=== PATIENT | female | born 1975 ===

== ENCOUNTER 2017-02-25 13:46 | Inpatient (IN) | payer MEDICAID ==
[2017-02-25 13:53] VITALS: BMI 39.9
[2017-02-25 15:00] LABS: EOS # 0.1 K/uL (0.0-0.7); LYMPH # 2.9 K/uL (1.0-4.3); MEAN CORPUSCULAR HEMOGLOBIN 17.5 pg (27.0-31.0); MONO # 0.7 K/uL (0.0-0.8)
[2017-02-25 15:05] LABS: CHLORIDE 107 mmol/L (98-107); INR 3.1; SODIUM 139 mmol/L (132-148)
[2017-02-25 15:06] LABS: POTASSIUM 3.7 mmol/L (3.6-5.2)
[2017-02-25 15:07] LABS: CARBON DIOXIDE 21 mmol/L (22-30); CHOLESTEROL 163 mg/dL (0-199)
[2017-02-25 15:08] LABS: ALB/GLOB RATIO 1.2 (1.0-2.1); ALKALINE PHOSPHATASE 89 U/L (38-126); ALT/SGPT 25 U/L (9-52); AST/SGOT 33 U/L (14-36); BILIRUBIN,TOTAL 0.6 mg/dL (0.2-1.3); BLOOD UREA NITROGEN 11 mg/dL (7-17); CALCIUM 8.8 mg/dl (8.6-10.4); GFR AFRICAN-AMERICAN > 60; GLUCOSE,RANDOM 113 mg/dL (65-105); TOTAL PROTEIN 7.5 g/dL (6.3-8.3)
[2017-02-25 15:16] LABS: BASO % 0.4 % (0.0-2.0); EOS % 1.5 % (0.0-4.0); HEMATOCRIT 34.1 % (34.0-47.0); LYMPH % 31.2 % (20.0-40.0); MEAN CORPUSCULAR HGB CONC 28.7 g/dL (33.0-37.0); MEAN PLATELET VOLUME 9.3 fL (7.2-11.7); MONO % 7.8 % (0.0-10.0); NRBC % 0.1 % (0.0-2.0); RED CELL DISTRIBUTION WIDTH 21.7 % (11.5-14.5); WHITE BLOOD COUNT 9.4 K/uL (4.8-10.8)
[2017-02-25 15:18] LABS: MEAN CELL VOLUME 60.9 fL (81.0-99.0)
[2017-02-25 15:47] LABS: RBC URINE 4 /hpf (0-3); URINE BILIRUBIN NEGATIVE (NEGATIVE); URINE BLOOD NEGATIVE (NEGATIVE); URINE COLOR Yellow (YELLOW); URINE GLUCOSE (UA) NORMAL (Normal); URINE KETONE NEGATIVE (NEGATIVE); URINE LEUKOCYTE ESTERASE 2+ Leu/uL (Negative); URINE PROTEIN 1+ mg/dL (NEGATIVE); URINE UROBILINOGEN NORMAL mg/dL (0.2-1.0)
[2017-02-25 15:48] LABS: URINE BACTERIA OCC (<OCC); URINE HYALINE CAST 0-2 /lpf (0-2); WBC URINE 21 /hpf (0-5)
--- NOTE | 2017-02-25 16:03 | CT ---
EXAM: CT Head Without Intravenous Contrast CLINICAL HISTORY: 41 years old, female; Signs and symptoms; Weakness, facial; Additional info: H/o CVA, has worsened left sided weakness TECHNIQUE: Axial computed tomography images of the head/brain without intravenous contrast. This CT exam was performed using one or more of the following dose reduction techniques: automated exposure control, adjustment of the mA and/or kV according to patient size, and/or use of iterative reconstruction technique. EXAM DATE/TIME: Exam ordered 02/25/2017 2:35 PM COMPARISON: No relevant prior studies available. FINDINGS: Brain: There is a 3 mm round area of rounded low density noted within the right thalamus No hemorrhage. No significant white matter disease. No edema. Ventricles: Unremarkable. No ventriculomegaly. Bones/joints: Unremarkable. No acute fracture. Soft tissues: Unremarkable. Sinuses: Unremarkable as visualized. No acute sinusitis. Mastoid air cells: Unremarkable as visualized. No mastoid effusion. IMPRESSION: 1. 3 mm focus of low density within the right thalamus. This could represent a lacunar infarct or prominent Virchow tosin perivascular space.
--- NOTE | 2017-02-25 17:00 | C.PDOC ---
History Of Present Illness Pt states that she had a stroke in 2009 that affected her left side. Three days ago her left side got suddenly weaker. Time Seen by Provider: 02/25/17 14:22 Chief Complaint (Nursing): Weakness/Neurological Deficit History Per: Patient Onset/Duration Of Symptoms: Days (3) Current Symptoms Are (Timing): Still Present Severity: Moderate Additional History Per: Prior Records - Symptoms Of CVA Associated Symptoms: Decreased Ability To Walk Character Of Deficits: Left: Weakness, Arm: Weakness, Leg: Weakness Current Coumadin Use?: Yes Recent Head Trauma: No Past Medical History Reviewed: Historical Data, Nursing Documentation, Vital Signs Vital Signs: Last Vital Signs Temp 98.1 F 02/25/17 13:47 Pulse 81 02/25/17 16:33 Resp 16 02/25/17 16:33 BP 108/64 02/25/17 16:33 Pulse Ox 95 02/25/17 16:33 - Medical History PMH: CVA, Diabetes, HTN Other PMH: Neuropathy Family History: States: Unknown Family Hx - Social History Hx Alcohol Use: No Hx Substance Use: No - Immunization History Hx Tetanus Toxoid Vaccination: No Hx Influenza Vaccination: No Hx Pneumococcal Vaccination: No Review Of Systems Except As Marked, All Systems Reviewed And Found Negative. Constitutional: Negative for: Fever Cardiovascular: Negative for: Chest Pain Respiratory: Negative for: Cough, Shortness of Breath Gastrointestinal: Negative for: Vomiting, Abdominal Pain Genitourinary: Negative for: Dysuria Skin: Negative for: Rash Neurological: Positive for: Weakness (left side), Numbness. Negative for: Seizures, Altered Mental Status Physical Exam - Physical Exam Appears: No Acute Distress, Chronically Ill Skin: Normal Color, Warm, Dry Head: Atraumatic, Normacephalic Eye(s): bilateral: PERRL, EOMI Neck: Normal ROM, Supple Cardiovascular: Rhythm Regular Respiratory: Normal Breath Sounds, No Accessory Muscle Use Gastrointestinal/Abdominal: Soft, No Tenderness Extremity: Normal ROM, No Deformity Neurological/Psych: Oriented x3, Normal Speech, Normal Cognition, Normal Cranial Nerves, No Cerebellar Signs, No Normal Motor (left sided weakness), No Normal Sensation (due to neuropathy) ED Course And Treatment - Laboratory Results Result Diagrams: 02/25/17 14:50 02/25/17 14:50 Interpretation Of Abnormal: INR therapeutic Urine POC: Negative ECG: Interpreted By Me, Viewed By Me ECG Rhythm: Sinus Rhythm, Nonspecific Changes Rate From EC O2 Sat by Pulse Oximetry: 95 Pulse Ox Interpretation: Normal - CT Scan/US CT head Other Rad Studies (CT/US): Read By Radiologist, Radiology Report Reviewed CT/US Interpretation: IMPRESSION: 1. 3 mm focus of low density within the right thalamus. This could represent a. lacunar infarct or prominent Virchow tosin perivascular space. - Physician Consult Information Physician Contacted: Shaun Weaver Outcome Of Conversation: Pt should be admitted for further evaluation. NIHSS Stroke Scale - Date/Time Evaluation Performed Date Performed: 02/25/17 When Was NIHSS Performed: Baseline - How Severe is the Stoke Level of Consciousness: 0=Alert LOC to Questions: 0=Both comments correct LOC to commands: 0=Obeys both correctly Best Gaze: 0=Normal Visual: 0=No visual loss Facial: 0=Normal Motor Arm - Left: 2=Falls before 10 sec Motor Arm - Right: 0=No drift Motor Leg - Left: 3=No effort against gravity (falls immediately) Motor Leg - Right: 0=No drift Limb Ataxia: 0=Absent Sensory: 1=Mild to moderate loss Best Language: 0=No aphasia Dysarthia: 0=Normal articulation Extinction & Inattention (Neglect): 0=Normal, no object Score: 6 Severity Of Stroke: 5-15= Moderate Stroke rTPA Inclusion/Exclusion - Inclusion Criteria for Altepase Patient is 18 years or Older: Yes The Clinical Diagnosis of Ischemic Stroke That is Causing a Potentially Disabling Neurological Deficit: Yes Time of Onset is Well Established to be Less Than 270 Minute Before Treatment Would Begin: No Risk/Benefit Discussed With Patient/Family Member Present: No Disposition Discussed With : Eva Lauren Comment: He accepted pt on his service. Doctor Will See Patient In The: Hospital - Disposition Disposition: HOSPITALIZED Disposition Time: 17:03 Condition: FAIR - Clinical Impression Clinical Impression: CVA (cerebral vascular accident)
--- NOTE | 2017-02-25 18:10 | CP.PCM.CON ---
History of Present Illness - History of Present Illness History of Present Illness: Ms. Estevez is a 41-year-old woman with a past medical history of hypertension, dyslipidemia, diabetes, atrial fibrillation and previous ischemic stroke in 2009 (on coumdadin for secondary stroke prevention), who presented to the ED with complaints of worsening left side weakness. She says that after her previous stroke, she still had some fine motor deficits, but about one week ago , she started to have more numbness on the left side. About 3 days ago, she noticed that her left side is now heavy and she has been dragging her left leg. She has also had a few falls, but has not injured herself. She has not had any loss of consciousness, bowel/urinary incontinence or tongue biting. She denied headache, nausea, visual changes or dizziness. Review of Systems - Review of Systems All systems: reviewed and no additional remarkable complaints except - Constitutional Constitutional: absent: As Per HPI, Anorexia, Chills, Daytime Sleepiness, Excessive Sweating, Fatigue, Fever, Frequent Falls, Headache, Increased Appetite , Lethargy, Malaise, Night Sweats, Snoring, Sleep Apnea, Weight Gain, Weight Loss, Weakness, Other - EENT Eyes: absent: As Per HPI, Blind Spots, Blurred Vision, Change in Vision, Decreased Night Vision, Diplopia, Discharge, Dry Eye, Exophthalmos, Floaters, Irritation, Itchy Eyes, Loss of Peripheral Vision, Pain, Photophobia, Requires Corrective Lenses, Sees Flashes, Spots in Vision, Tunnel Vision, Other Visual Disturbances, Loss of Vision, Other Ears: absent: As Per HPI, Decreased Hearing, Ear Discharge, Ear Pain, Tinnitus, Abnormal Hearing, Disequilibrium, Dizziness, Other Nose/Mouth/Throat: absent: As Per HPI, Epistaxis, Nasal Congestion, Nasal Discharge, Nasal Obstruction, Nasal Trauma, Nose Pain, Post Nasal Drip, Sinus Pain, Sinus Pressure, Bleeding Gums, Change in Voice, Dental Pain, Dry Mouth, Dysphagia, Halitosis, Hoarsness, Lip Swelling, Mouth Lesions, Mouth Pain, Odynophagia, Sore Throat, Throat Swelling, Tongue Swelling, Facial Pain, Neck Pain, Neck Mass, Other - Cardiovascular Cardiovascular: absent: As Per HPI, Acrocyanosis, Chest Pain, Chest Pain at Rest , Chest Pain with Activity, Claudication, Diaphoresis, Dyspnea, Dyspnea on Exertion, Edema, Irregular Heart Rhythm, Pain Radiating to Arm/Neck/Jaw, Leg Edema, Leg Ulcers, Lightheadedness, Orthopnea, Palpitations, Paroxysmal Nocturnal Dyspnea, Pedal Edema, Radiating Pain, Rapid Heart Rate, Slow Heart Rate, Syncope, Other - Respiratory Respiratory: absent: As Per HPI, Cough, Dyspnea, Hemoptysis, Dyspnea on Exertion , Wheezing, Snoring, Stridor, Pain on Inspiration, Chest Congestion, Excessive Mucous Production, Change in Mucous Color, Pain with Coughing, Other - Gastrointestinal Gastrointestinal: absent: As Per HPI, Abdominal Pain, Belching, Bloating, Change in Bowel Habits, Change in Stool Character, Coffee Ground Emesis, Constipation, Cramping, Diarrhea, Dyspepsia, Dysphagia, Early Satiety, Excessive Flatus, Fecal Incontinence, Heartburn, Hematemesis, Hematochezia, Loose Stools, Melena, Nausea, Odynophagia, Temesmus, Vomiting, Other - Genitourinary Genitourinary: absent: As Per HPI, Change in Urinary Stream, Difficulty Urinating, Dysuria, Flank Pain, Hematuria, Pyuria, Nocturia, Urinary Incontinence, Urinary Frequency, Urinary Hesitance, Urinary Urgency, Voiding Freq/Small Amts, Freq UTI, Hx Renal/Bladder Calculi, Hx /Renal Surgery, Bladder Distension, Other - Musculoskeletal Musculoskeletal: absent: As Per HPI, Abnormal Gait, Arthralgias, Atrophy, Back Pain, Deformity, Joint Swelling, Limited Range of Motion, Loss of Height, Muscle Cramps, Muscle Weakness, Myalgias, Neck Pain, Numbness, Radiating Pain into Limb, Stiffness, Tingling, Other - Integumentary Integumentary: absent: As Per HPI, Acne, Alopecia, Bleeding Lesions, Change in Hair, Change in Nails, Change in Pigmentation, Changing Lesions, Dry Skin, Erythema, Furuncle, Hirsutism, Lesions, New Lesions, Non-Healing Lesions, Photosensitivity, Pruritus, Rash, Skin Pain, Skin Ulcer, Sores, Striae, Swelling , Unusual Bruising, Wounds, Jaundice, Other - Neurological Neurological: As Per HPI - Psychiatric Psychiatric: absent: As Per HPI, Abnormal Sleep Pattern, Anhedonia, Anxiety, Auditory Hallucinations, Behavioral Changes, Change in Appetite, Change in Libido, Confusion, Depression, Difficulty Concentrating, Hallucinations, Homicidal Ideation, Hopelessness, Irritability, Memory Loss, Mood Swings, Panic Attacks, Paranoia, Suicidal Ideation, Visual Hallucinations, Tactile Hallucinations, Other - Endocrine Endocrine: absent: As Per HPI, Change in Body Appearance, Change in Libido, Cold Intolorance, Deepening of Voice, Excessive Sweating, Fatigue, Flushing, Heat Intolorance, Increase in Ring/Shoe/Hat Size, Palpitations, Polydipsia, Polyphagia, Polyuria, Other - Hematologic/Lymphatic Hematologic: absent: As Per HPI, Easy Bleeding, Easy Bruising, Lymphadenopathy, Other Past Patient History - Past Social History Smoking Status: Former Smoker - CARDIAC Hx Hypertension: Yes - NEUROLOGICAL HX Cerebrovascular Accident: Yes (2009 PER PATIENT) - ENDOCRINE/METABOLIC Hx Diabetes Mellitus Type 2: Yes - PSYCHIATRIC Hx Substance Use: No - SURGICAL HISTORY Hx Surgeries: No - ANESTHESIA Hx Anesthesia: No Meds Allergies/Adverse Reactions: Allergies Allergy/AdvReac Type Severity Reaction Status Date / Time famotidine [From Pepcid] Allergy Verified 02/25/17 13:49 Physical Exam - Constitutional Appears: Well - Head Exam Head Exam: ATRAUMATIC, NORMAL INSPECTION, NORMOCEPHALIC - Eye Exam Eye Exam: EOMI, Normal appearance, PERRL - ENT Exam ENT Exam: Mucous Membranes Moist, Normal Exam - Neck Exam Neck exam: Positive for: Normal Inspection - Respiratory Exam Respiratory Exam: Clear to Auscultation Bilateral, NORMAL BREATHING PATTERN - Cardiovascular Exam Cardiovascular Exam: REGULAR RHYTHM, +S1, +S2 - GI/Abdominal Exam GI & Abdominal Exam: Normal Bowel Sounds, Soft. absent: Tenderness - Rectal Exam Rectal Exam: Deferred - Extremities Exam Extremities exam: Positive for: normal inspection - Back Exam Back exam: NORMAL INSPECTION - Neurological Exam Neurological exam: Abnormal Gait, Alert, CN II-XII Intact, Motor Sensory Deficit , Oriented x3 - Expanded Neurological Exam Expanded Patient oriented to: person, place, time Cranial nerves: EOM's Intact: Normal, Facial Sensation: Normal, Gag Reflex: Normal Cerebellar Function: Finger to Nose: Abnormal Left, Heel to Hernandez: Abnormal Left Upper motor neuron: Babinski Sign: Abnormal Left, Pronator Drift: Abnormal Left , Sensory Extinction: Abnormal Left Sensory exam: Lower Extremity 2 Point Discrimination: Abnormal Left, Lower Extremity Light Touch: Abnormal Left, Abnormal Right, Lower Extremity Pin Prick : Abnormal Left, Abnormal Right, Upper Extremity 2 Point Discrimination: Normal , Upper Extremity Light Touch: Normal, Upper Extremity Pin Prick: Normal Neuro motor strength exam: Left Upper Extremity: 4, Right Upper Extremity: 5, Left Lower Extremity: 3, Right Lower Extremity: 5 DTR: Achilles Tendon Left: 3+, Achilles Tendon Right: 2+, Bicep Left: 3+, Bicep Right: 2+, Brachioradialis Left: 3+, Brachioradialis Right: 2+, Patellar Left: 3 +, Patellar Right: 2+ - Psychiatric Exam Psychiatric exam: Normal Affect, Normal Mood - Skin Skin Exam: Dry, Intact, Normal Color, Warm Results - Vital Signs Recent Vital Signs: Last Vital Signs Temp 98.1 F 02/25/17 13:47 Pulse 74 02/25/17 17:15 Resp 18 02/25/17 17:15 BP 106/72 02/25/17 17:15 Pulse Ox 98 02/25/17 17:15 - Labs Result Diagrams: 02/25/17 14:50 02/25/17 14:50 - Imaging and Cardiology CT scan - head Status: Image reviewed by me, Report reviewed by me (Likely subacute to chronic right thalamic lacunar stroke.) Assessment & Plan (1) CVA (cerebral vascular accident) Assessment and Plan: Likely resurgence of previous ischemic stroke symptoms due to hypotension, UTI or stress response. However, new subacute stroke cannot be ruled out involving the right thalamus. I recommend telemetry, continue coumadin, obtain MRI of the brain and MRA of the head/neck (may need anesthesia due to severe claustrophobia), echocardiogram, PT/OT eval and treatment. Hold antihypertensive medications for SBP <140 mm Hg. Statin not necessary since LDL is less than 100 mg/dL. Thank you for this consultation. Status: Acute
[2017-02-25] MEDS ORDERED: Oxycodone/Acetaminophen 5/325 mg Tab ONE (20:11)
[2017-02-25] MEDS: Oxycodone/Acetaminophen 5/325 mg Tab PO PRN (20:12)
[2017-02-26 01:50] VITALS: RESP 20
[2017-02-26] MEDS: Oxycodone/Acetaminophen 5/325 mg Tab PO PRN (02:24)
[2017-02-26 06:06] VITALS: BP 128/83; PULSE 80; TEMP 98.2; O2SAT 98
[2017-02-26] MEDS ORDERED: (Novolog) Insulin Aspart, Recombinant 100 u/ml 10 ml vial SC SCH (10:00)
[2017-02-26] MEDS ORDERED: Levothyroxine 25 MCG TAB PO SCH ×2 (10:00)
[2017-02-26] MEDS ORDERED: Insulin Detemir 100 units/ml Vial (Levemir) SC SCH (10:00)
[2017-02-26] MEDS ORDERED: WARFARIN 10 MG PO SCH ×2 (10:00)
--- NOTE | 2017-02-27 06:48 | HP ---
A 41-year-old female chief complaint of weakness, fatigue, tiredness. She has diabetes. The patient came into the hospital, advised admission. The patient ____ depressed. The patient on Coumadin. Th e patient ____. PHYSICAL EXAMINATION: GENERAL: The patient awake, alert, oriented. VITAL SIGNS: Temperature 98, pulse ____. HEENT: Within normal limits. NECK: Supple. CHEST: Symmetrical. HEART: Regular. ABDOMEN: Soft. EXTREMITIES: No edema. ____ CVA, new versus old. ____ cardiology, neurology evaluation. Eva Cerna MD cc: [id number] TT: 02/26/2017 15:44:53 02/27/2017 05:47:04
--- NOTE | 2017-02-28 00:31 | CARD ---
APPROVED REPORT EKG Measurement Heart [id number] <Conclusion> Normal sinus rhythm Left axis deviation Minimal voltage criteria for LVH, may be normal variant Septal infarct, age undetermined Abnormal ECG
== END 2017-02-26 08:06 | disposition left against medical advice (07) | DRG 12 ==
LOC: C.ER 13:46 → C.9E 17:05 → C.6T 19:35
PROVIDERS: ADMIT Internal Medicine Pulmonary Disease; ATTEND Internal Medicine Pulmonary Disease
DX: I69.354 Hemiplegia and hemiparesis following cerebral infarction affecting left non-dominant side (principal); E11.40 Type 2 diabetes mellitus with diabetic neuropathy, unspecified; R53.1 Weakness; I10 Essential (primary) hypertension; Z87.891 Personal history of nicotine dependence; E78.5 Hyperlipidemia, unspecified; Z79.01 Long term (current) use of anticoagulants

== ENCOUNTER 2018-05-05 13:43 | Inpatient (IN) | payer MEDICAID ==
[2018-05-05 13:43] VITALS: BMI 39.9
[2018-05-05 15:28] LABS: BASO # 0.2 K/uL (0.0-0.2); BASO % 1.9 % (0.0-2.0); EOS # 0.1 K/uL (0.0-0.7); EOS % 1.2 % (0.0-4.0); LYMPH # 2.5 K/uL (1.0-4.3); LYMPH % 26.7 % (20.0-40.0); MEAN CORPUSCULAR HEMOGLOBIN 24.9 pg (27.0-31.0); MEAN CORPUSCULAR HGB CONC 32.1 g/dL (33.0-37.0); MEAN PLATELET VOLUME 8.8 fL (7.2-11.7); MONO # 0.5 K/uL (0.0-0.8); MONO % 5.9 % (0.0-10.0); NEUT % 64.3 % (50.0-75.0); NRBC % 0.1 % (0.0-2.0); RBC 3.6 Mil/uL (3.80-5.20); RED CELL DISTRIBUTION WIDTH 17.9 % (11.5-14.5); WHITE BLOOD COUNT 9.3 K/uL (4.8-10.8)
[2018-05-05 15:31] LABS: MEAN CELL VOLUME 77.5 fL (81.0-99.0)
[2018-05-05 15:36] LABS: INR 2.7; PROTHROMBIN TIME 29.9 SECONDS (9.7-12.2)
[2018-05-05 15:43] LABS: ALB/GLOB RATIO 1.3 (1.0-2.1); ALBUMIN 3.9 g/dL (3.5-5.0); ALT/SGPT 23 U/L (9-52); AST/SGOT 22 U/L (14-36); BLOOD UREA NITROGEN 9 mg/dL (7-17); CALCIUM 8.8 mg/dl (8.6-10.4); GFR NON-AFRICAN AMERICAN > 60; LIPASE 108 U/L (23-300)
[2018-05-05] MEDS ORDERED: Potassium Chloride 20 mEq ER Tab PO STA (17:07)
--- NOTE | 2018-05-05 17:10 | C.PDOC ---
History Of Present Illness 42 year old female presents to the emergency department with complaints of worsening back pain that is chronic in nature, worse in the last 1 week. Patient denies falls/injuries, abdominal pain, nausea/vomiting/diarrhea, dysuria , vaginal bleeding/discharge, sensory changes, extremity weakness, urinary retention, bowel/bladder incontinence. Patient has neurosurgeon, Dr. Roque , in [place] who is planning to do further interventions on her. PMHx of DM, chronic low ricardo pain, lumbar herniations/spinal stenosis, HTN, neuropathy, CVA Time Seen by Provider: 05/05/18 14:05 Chief Complaint (Nursing): Back Pain History Per: Patient History/Exam Limitations: no limitations Onset/Duration Of Symptoms: Other (one week) Current Symptoms Are (Timing): Still Present Quality Of Discomfort: "Pain" Severity: Moderate Previous Symptoms: Back Pain, Chronic Pain Associated Symptoms: denies: Incontinence, New Weakness, New Numbness, Other ( Nausea, vomiting, dysuria, vaginal bleeding, vaginal discharge) Past Medical History Reviewed: Historical Data, Nursing Documentation, Vital Signs Vital Signs: Last Vital Signs Temp 98.8 F 05/09/18 08:09 Pulse 113 H 05/09/18 08:09 Resp 20 05/09/18 08:09 BP 156/91 H 05/09/18 08:09 Pulse Ox 95 05/09/18 08:09 - Medical History PMH: CVA, Diabetes, HTN Surgical History: No Surg Hx Family History: States: No Known Family Hx - Social History Hx Alcohol Use: No Hx Substance Use: No - Immunization History Hx Tetanus Toxoid Vaccination: Yes Hx Influenza Vaccination: Yes Hx Pneumococcal Vaccination: Yes Review Of Systems Constitutional: Negative for: Fever, Chills Cardiovascular: Negative for: Chest Pain Respiratory: Negative for: Cough, Shortness of Breath Gastrointestinal: Negative for: Abdominal Pain Genitourinary: Negative for: Dysuria, Vaginal Discharge, Vaginal Bleeding Musculoskeletal: Positive for: Back Pain Physical Exam - Physical Exam Appears: Well, Non-toxic, In Acute Distress (moderate pain), Other (morbidly obese) Skin: Warm, Dry, No Rash Head: Normacephalic Eye(s): bilateral: Normal Inspection Oral Mucosa: Moist Neck: Supple Cardiovascular: Rhythm Regular Respiratory: Normal Breath Sounds, No Rales, No Rhonchi, No Wheezing Gastrointestinal/Abdominal: Normal Exam, Bowel Sounds, Soft, No Tenderness, No Guarding, No Rebound, Other (obese) Back: No CVA Tenderness, Vertebral Tenderness (diffuse lumbar tenderness), Paraspinal Tenderness (diffuse lumbar tenderness) Extremity: Normal ROM, Tenderness (tenderness to palpation on lower extremities) , No Calf Tenderness, Capillary Refill (< 2 sec all digits ), No Swelling, No Other (erythema, pitting edema) Pulses: Left Dorsalis Pedis: Normal, Right Dorsalis Pedis: Normal Neurological/Psych: Oriented x3, Normal Motor, Normal Sensation (normal sensation B/L thighs, no saddle anesthesia) ED Course And Treatment - Laboratory Results Result Diagrams: 05/09/18 06:48 05/09/18 06:48 O2 Sat by Pulse Oximetry: 100 (RA) Pulse Ox Interpretation: Normal Progress Note: Blood work ordered and reviewed. Patient given IV Toradol and PO Valium. Patient continued to c/o significant low back pain - IV morphine ordered. - Physician Consult Information Physician Contacted: Eva Lauren Outcome Of Conversation: Discussed patient with her PMD, he agrees with observation for acute on chronic low back pain, intractable, lumbar disc herniations and spinal stenosis (patient has copy of outpatient MRI that was done). Disposition - Disposition Disposition: HOSPITALIZED Disposition Time: 18:08 Condition: STABLE - Clinical Impression Clinical Impression: Spinal stenosis, Acute exacerbation of chronic low back pain, Lumbar disc herniation - Scribe Statement The provider has reviewed the documentation as recorded by the Scribe (Bi Roque) Provider Attestation: All medical record entries made by the Scribe were at my direction and personally dictated by me. I have reviewed the chart and agree that the record accurately reflects my personal performance of the history, physical exam, medical decision making, and the department course for this patient. I have also personally directed, reviewed, and agree with the discharge instructions and disposition. Decision To Admit - Pt Status Changed To: Hospital Disposition Of: Observation - . Bed Request Type: Regular Admitting Physician: Eva Lauren Patient Diagnosis: Spinal stenosis, Acute exacerbation of chronic low back pain, Lumbar disc herniation
[2018-05-05] MEDS ORDERED: Sodium Chloride 0.9% 500 ML IV ONE ×2 (17:16→17:26)
[2018-05-05] MEDS ORDERED: Potassium Chloride 20 mEq ER Tab PO ONE (17:19)
[2018-05-05] MEDS ORDERED: Morphine 4 MG/ML VIAL ONE (17:26)
[2018-05-05 18:11] LABS: HCG,QUALITATIVE URINE NEGATIVE (NEGATIVE)
[2018-05-05 18:25] LABS: SQUAMOUS EPITHIAL 1 /hpf (0-5); URINE BACTERIA RARE (<OCC); URINE BILIRUBIN NEGATIVE (NEGATIVE); URINE BLOOD NEGATIVE (NEGATIVE); URINE CLARITY Clear (Clear); URINE COLOR Yellow (YELLOW); URINE GLUCOSE (UA) NORMAL (Normal); URINE LEUKOCYTE ESTERASE NEG Leu/uL (Negative); URINE PROTEIN NEGATIVE (NEGATIVE)
[2018-05-05] MEDS ORDERED: Home Med 1 UNIT (Acetaminophen/Oxycodone Hydr [Percocet 10/325 Mg Tab] 1 TAB) PO SCH (20:30)
[2018-05-05] MEDS ORDERED: Oxycodone/Acetaminophen 5/325 mg Tab ONE (20:45)
[2018-05-05 21:40] VITALS: RESP 20
[2018-05-05] MEDS ORDERED: Home Med 1 UNIT (Zolpidem [Ambien] 10 MG) PO SCH (22:00)
[2018-05-05] MEDS: (Novolog) Insulin Aspart, Recombinant 100 u/ml 10 ml vial SC SCH (23:07)
[2018-05-05] MEDS: Oxycodone/Acetaminophen 5/325 mg Tab PO PRN (23:13)
--- NOTE | 2018-05-06 05:17 | CP.PCM.PCO ---
Physician Communication Note - Physician Communication Note Physician Communication Note: nurse call that patient has not urinated & bladder scan >1300. insert bailey
[2018-05-06] MEDS: Oxycodone/Acetaminophen 5/325 mg Tab PO PRN ×4 (05:58→22:54)
[2018-05-06] MEDS: (Novolog) Insulin Aspart, Recombinant 100 u/ml 10 ml vial SC SCH ×4 (08:47→21:48)
--- NOTE | 2018-05-06 09:47 | CP.PCM.PN ---
Subjective - Date & Time of Evaluation Date of Evaluation: 05/06/18 Time of Evaluation: 09:47 - Subjective Subjective: Patient is a 42F with PMHx of CVA, HTN, DM, neuropathy, WPW s/p multiple ablation attempts who presented to the ER on 05/05 with acute on chronic back pain. Patient has history of 4 herniated discs and spinal stenosis. She reports back pain began last April after a slip and fall at home where she fell on her back. Patient states that she is following with neurosurgeon Dr. Roque as outpatient with plans for intervention in the near future. Patient states that she also suffers from severe neuropathy in her legs which has caused her to have numbness and tingling in her bilateral lower extremities. Patient reports that overnight she could not empty her bladder due to positioning. She states that she cannot urinate on a bedpan due to back pain from positioning but could not get out of bed to use commode. Patient also reports that she has been evaluated by bariatric surgeon for weight loss surgery but was told she will not be a candidate until she has her spinal surgery. PMHx: CVA in 2009, HTN, DM, neuropathy, WPW, spinal stenosis, 4 disc herniations PMD: Dr. Lauren OutPt Cardio: Dr. Mehta Meds:Metformin 500mg daily, Invokana 100mg, Percocet 10/325, trazodone 50 HS, Ambien 10mg HS, Novolog 15u TIDAC, Gabapentin 800mg QID, Norvasc 10mg daily, coumadin 7.5mg PO daily (secondary stroke prevention), Valsartan 320mg, sotalol 80mg BID, levothyroxine 25mcg, basaglar 50u BID Objective - Vital Signs/Intake and Output Vital Signs (last 24 hours): Temp Pulse Resp BP Pulse Ox 97.9 F 82 20 156/88 H 97 05/06/18 07:59 05/06/18 07:59 05/06/18 07:59 05/06/18 07:59 05/06/18 07:59 Intake and Output: 05/06/18 05/06/18 06:59 18:59 Intake Total 240 Output Total 1400 Balance -1160 - Medications Medications: Current Medications Amlodipine Besylate (Norvasc) 10 mg PO DAILY [facility] Cyclobenzaprine HCl (Flexeril) 10 mg PO DAILY [facility] Gabapentin (Neurontin) 800 mg PO QID [facility] Last Admin: 05/05/18 23:07 Dose: 800 mg Home Med (Valsartan [Diovan]) 320 mg PO DAILY [facility] Home Med (Warfarin [Coumadin]) 7.5 mg PO DAILY [facility] Ibuprofen (Motrin Tab) 800 mg PO Q8 PRN PRN Reason: Pain, Mild (1-3) Insulin Aspart (Novolog) 0 unit SC ACHS [facility] PRN Reason: Protocol Last Admin: 05/06/18 08:47 Dose: 2 units Insulin Glargine (Lantus) 50 unit SC BID [facility] Ketorolac Tromethamine (Toradol) 30 mg IVP Q6 PRN PRN Reason: Pain, severe (8-10) Last Admin: 05/06/18 00:41 Dose: 30 mg Levothyroxine Sodium (Synthroid) 10 mcg PO DAILY [facility] Metformin HCl (Glucophage) 500 mg PO DAILY [facility] Oxycodone/Acetaminophen (Percocet 5/325 Mg Tab) 2 tab PO Q4H PRN PRN Reason: Pain, moderate (4-7) Stop: 05/08/18 20:34 Last Admin: 05/06/18 05:58 Dose: 2 tab Trazodone HCl (Desyrel) [address] [facility] Last Admin: 05/05/18 23:06 Dose: 50 mg Zolpidem Tartrate (Ambien) [address] [facility] Last Admin: 05/05/18 23:05 Dose: 5 mg - Labs Labs: 05/05/18 15:22 05/05/18 15:22 PT 29.9 SECONDS (9.7-12.2) H* 05/05/18 15:22 INR 2.7 05/05/18 15:22 APTT 41 SECONDS (21-34) H 05/05/18 15:22 - Constitutional Appears: Non-toxic, Other (uncomfortable) - Head Exam Head Exam: ATRAUMATIC, NORMOCEPHALIC - Eye Exam Eye Exam: EOMI - ENT Exam ENT Exam: Mucous Membranes Moist - Respiratory Exam Respiratory Exam: Clear to Ausculation Bilateral, NORMAL BREATHING PATTERN - Cardiovascular Exam Cardiovascular Exam: +S1, +S2 - GI/Abdominal Exam GI & Abdominal Exam: Soft, Normal Bowel Sounds. absent: Tenderness - Exam Additional comments: bailey catheter in place - Extremities Exam Extremities Exam: absent: Calf Tenderness - Back Exam Additional comments: patient with diffuse paraspinal tenderness on palpation and with minimal motion - Neurological Exam Neurological Exam: Alert, Awake Additional comments: decreased sensation to bilateral lower extremities - Skin Skin Exam: Dry, Warm Assessment and Plan - Assessment and Plan (Free Text) Assessment: Back Pain toradol 30mg IVP q6h prn flexeril 10mg PO daily lidoderm patch 5% daily ibuprofen 800mg q8prn percocet 2 tab PO q4prn HTN norvasc 10mg daily losartan 100mg daily continue to monitor Diabetes ISS Lantus 50u Q12h metformin 500mg daily accuchecks ACHS hypoglycemia protocol Neuropathy gabapentin 800mg PO QID CVA continue coumadin 7.5mg check INR in AM Hypothyroidism levothyroxine 25mcg PO daily Insomnia trazodone 50mg PO HS Ambien 5mg PO HS Prophylactic measure PT/OT All management as per Dr. Lauren
[2018-05-06] MEDS ORDERED: Home Med 1 UNIT (Valsartan [Diovan] 320 MG) PO SCH (10:00)
[2018-05-06] MEDS ORDERED: WARFARIN 7.5 MG PO SCH (10:00)
[2018-05-06] MEDS ORDERED: Levothyroxine 25 MCG TAB PO SCH (10:00)
[2018-05-06] MEDS ORDERED: (Lantus) Insulin Glargine, Recombinant SC SCH (10:00)
[2018-05-06 11:27] LABS: BASO # 0.1 K/uL (0.0-0.2); BASO % 0.9 % (0.0-2.0); EOS # 0.1 K/uL (0.0-0.7); EOS % 1.1 % (0.0-4.0); HEMOGLOBIN 8.4 g/dL (11.0-16.0); LYMPH # 2.4 K/uL (1.0-4.3); LYMPH % 30.6 % (20.0-40.0); MEAN CELL VOLUME 77.2 fL (81.0-99.0); MEAN CORPUSCULAR HEMOGLOBIN 25.1 pg (27.0-31.0); MEAN CORPUSCULAR HGB CONC 32.6 g/dL (33.0-37.0); MONO # 0.6 K/uL (0.0-0.8); MONO % 8.1 % (0.0-10.0); NEUT # 4.8 K/uL (1.8-7.0); NEUT % 59.3 % (50.0-75.0); RBC 3.34 Mil/uL (3.80-5.20); RED CELL DISTRIBUTION WIDTH 18.4 % (11.5-14.5)
[2018-05-06 11:49] LABS: ALB/GLOB RATIO 1.3 (1.0-2.1); ALBUMIN 3.6 g/dL (3.5-5.0); ALT/SGPT 26 U/L (9-52); AST/SGOT 24 U/L (14-36); BLOOD UREA NITROGEN 10 mg/dL (7-17); CALCIUM 8.8 mg/dl (8.6-10.4); GFR NON-AFRICAN AMERICAN > 60
[2018-05-06 14:17] LABS: INR 2.2; PROTHROMBIN TIME 24.4 SECONDS (9.7-12.2)
[2018-05-06] MEDS: Lidocaine 5% Patch TD SCH (14:17)
[2018-05-06] MEDS ORDERED: Potassium Chloride 20 mEq ER Tab PO ONE (14:30)
[2018-05-06] MEDS ORDERED: Glucagon Recombinant 1 mg Inj IM PRN (15:16)
[2018-05-06] MEDS ORDERED: Dextrose 50% SYRINGE Inj (50 ml) IVP PRN (15:16)
[2018-05-06] MEDS: (Lantus) Insulin Glargine, Recombinant SC SCH (21:46)
[2018-05-07] MEDS: Levothyroxine 25 MCG TAB PO SCH (05:52)
[2018-05-07] MEDS: Oxycodone/Acetaminophen 5/325 mg Tab PO PRN ×4 (06:42→23:06)
[2018-05-07 07:00] LABS: BASO # 0.1 K/uL (0.0-0.2); BASO % 1.1 % (0.0-2.0); EOS # 0.1 K/uL (0.0-0.7); HEMOGLOBIN 8.9 g/dL (11.0-16.0); LYMPH # 2.3 K/uL (1.0-4.3); LYMPH % 27.9 % (20.0-40.0); MEAN CELL VOLUME 77.7 fL (81.0-99.0); MEAN CORPUSCULAR HEMOGLOBIN 25.3 pg (27.0-31.0); MEAN CORPUSCULAR HGB CONC 32.6 g/dL (33.0-37.0); MEAN PLATELET VOLUME 8.9 fL (7.2-11.7); MONO # 0.6 K/uL (0.0-0.8); MONO % 7.5 % (0.0-10.0); NEUT # 5.2 K/uL (1.8-7.0); NEUT % 62.5 % (50.0-75.0); NRBC % 0.1 % (0.0-2.0); RBC 3.52 Mil/uL (3.80-5.20); WHITE BLOOD COUNT 8.3 K/uL (4.8-10.8)
[2018-05-07 07:02] LABS: INR 2.1; PROTHROMBIN TIME 22.6 SECONDS (9.7-12.2)
[2018-05-07 07:08] LABS: ALB/GLOB RATIO 1.3 (1.0-2.1); ALBUMIN 3.8 g/dL (3.5-5.0); ALT/SGPT 25 U/L (9-52); AST/SGOT 20 U/L (14-36); BLOOD UREA NITROGEN 7 mg/dL (7-17); CALCIUM 9.3 mg/dl (8.6-10.4); GFR NON-AFRICAN AMERICAN > 60
[2018-05-07] MEDS: (Novolog) Insulin Aspart, Recombinant 100 u/ml 10 ml vial SC SCH ×4 (08:00→22:14)
--- NOTE | 2018-05-07 08:36 | HP ---
Copied To: Eva Lauren MD Attending MD: Eva Lauren MD HISTORY OF PRESENT ILLNESS: 42 year-old female, chief complaint abdominal and back pain, difficulty walking, difficulty ambulation. history of spinal stenosis, diabetes, and morbid obesity. PHYSICAL EXAMINATION: GENERAL: The patient is awake, alert, and oriented. VITAL SIGNS: Temperature 98, pulse 90. HEENT: Within normal limits. NECK: Supple. CHEST: Symmetrical. HEART: Regular. ABDOMEN: Soft. EXTREMITIES: No edema. ASSESSMENT AND PLAN: The patient suffers from spinal stenosis, pain. Patient get bed rest, supportive care. Eva Lauren MD
[2018-05-07] MEDS: (Lantus) Insulin Glargine, Recombinant SC SCH ×2 (09:36→21:04)
[2018-05-07] MEDS ORDERED: Levothyroxine 25 MCG TAB PO SCH (10:00)
[2018-05-07] MEDS ORDERED: Potassium Chloride 20 mEq ER Tab PO ONE ×2 (10:04→11:45)
--- NOTE | 2018-05-07 11:18 | CP.PCM.PN ---
Subjective - Date & Time of Evaluation Date of Evaluation: 05/07/18 Time of Evaluation: 11:18 - Subjective Subjective: Medicine progress note for Dr. Lauren's service Patient reports that lidoderm patch did help to decrease pain slightly. Patient 's children and sister at bedside; patient less tearful today. Patient states that she did bed exercises only with PT today. Patient would like to increase mobility and continue physical therapy. Objective - Vital Signs/Intake and Output Vital Signs (last 24 hours): Temp Pulse Resp BP Pulse Ox 98 F 86 20 130/83 96 05/07/18 07:59 05/07/18 07:59 05/07/18 07:59 05/07/18 07:59 05/07/18 07:59 Intake and Output: 05/07/18 05/07/18 06:59 18:59 Intake Total 500 240 Output Total 900 650 Balance -400 -410 - Medications Medications: Current Medications Amlodipine Besylate (Norvasc) 10 mg PO DAILY [facility] Last Admin: 05/07/18 09:35 Dose: 10 mg Bethanechol Chloride (Urecholine) 10 mg PO TID [facility] Cyclobenzaprine HCl (Flexeril) 10 mg PO DAILY [facility] Last Admin: 05/07/18 09:35 Dose: 10 mg Dextrose (Dextrose 50% Inj) 0 ml IVP .STAT PRN; Protocol PRN Reason: Hypoglycemia Protocol Dextrose (Glutose 15) 0 gm PO .ONCE PRN; Protocol PRN Reason: Hypoglycemia Protocol Gabapentin (Neurontin) 800 mg PO QID [facility] Last Admin: 05/07/18 09:36 Dose: 800 mg Glucagon (Glucagen Diagnostic Kit) 0 mg IM .STAT PRN; Protocol PRN Reason: Hypoglycemia Protocol Dextrose (Dextrose 5% In Water 1000 Ml) 1,000 mls @ 0 mls/hr IV .Q0M PRN; Protocol; Per Protocol PRN Reason: Hypoglycemia Protocol Ibuprofen (Motrin Tab) 800 mg PO Q8 PRN PRN Reason: Pain, Mild (1-3) Insulin Aspart (Novolog) 0 unit SC ACHS [facility] PRN Reason: Protocol Last Admin: 05/07/18 08:00 Dose: 2 units Insulin Glargine (Lantus) 50 unit SC Q12H [facility] Last Admin: 05/07/18 09:36 Dose: 50 u Ketorolac Tromethamine (Toradol) 30 mg IVP Q6 PRN PRN Reason: Pain, severe (8-10) Last Admin: 05/07/18 09:35 Dose: 30 mg Levothyroxine Sodium (Synthroid) 25 mcg PO DAILY@0630 [facility] Last Admin: 05/07/18 05:52 Dose: 25 mcg Lidocaine (Lidoderm) 1 ea TD DAILY [facility] Last Admin: 05/06/18 14:17 Dose: 1 ea Losartan Potassium (Cozaar) 100 mg PO DAILY [facility] Last Admin: 05/07/18 09:35 Dose: 100 mg Metformin HCl (Glucophage) 500 mg PO BRK [facility] Last Admin: 05/07/18 07:59 Dose: 500 mg Morphine Sulfate (Morphine Extended Release Tab) 15 mg PO Q12 [facility] Oxycodone/Acetaminophen (Percocet 5/325 Mg Tab) 2 tab PO Q4H PRN PRN Reason: Pain, moderate (4-7) Stop: 05/08/18 20:34 Last Admin: 05/07/18 06:42 Dose: 2 tab Trazodone HCl (Desyrel) 50 mg PO HS [facility] Last Admin: 05/06/18 21:46 Dose: 50 mg Zolpidem Tartrate (Ambien) 5 mg PO HS [facility] Last Admin: 05/06/18 21:45 Dose: 5 mg - Labs Labs: 05/07/18 06:42 05/07/18 06:42 PT 22.6 SECONDS (9.7-12.2) H 05/07/18 06:42 INR 2.1 05/07/18 06:42 APTT 41 SECONDS (21-34) H 05/05/18 15:22 - Constitutional Appears: No Acute Distress - Head Exam Head Exam: ATRAUMATIC, NORMOCEPHALIC - Eye Exam Eye Exam: EOMI - ENT Exam ENT Exam: Mucous Membranes Moist - Respiratory Exam Respiratory Exam: Clear to Ausculation Bilateral, NORMAL BREATHING PATTERN - Cardiovascular Exam Cardiovascular Exam: +S1, +S2 - GI/Abdominal Exam GI & Abdominal Exam: Soft, Normal Bowel Sounds. absent: Tenderness - Extremities Exam Extremities Exam: Normal Inspection Additional comments: decreased sensation b/l lower extremities, bruise left thigh - Back Exam Additional comments: diffuse paraspinal tenderness - Neurological Exam Neurological Exam: Alert, Awake - Skin Skin Exam: Warm Assessment and Plan - Assessment and Plan (Free Text) Assessment: Back Pain patient with history of multiple disc herniations and spinal stenosis toradol 30mg IVP q6h prn starting MS contin 15mg BID flexeril 10mg PO daily lidoderm patch 5% daily ibuprofen 800mg q8prn percocet 2 tab PO q4prn Anemia iron studies ordered, ferretin 24.9, other studies pending will start PO iron with colace to help prevent constipation Urinary retention patient with difficulty urinating due to positioning in bed will not order bailey at this time straight cath as needed starting bethenechol 10mg PO TID HTN norvasc 10mg daily losartan 100mg daily continue to monitor Diabetes ISS Lantus 50u Q12h metformin 500mg daily accuchecks ACHS hypoglycemia protocol Neuropathy gabapentin 800mg PO QID adding elavil 25mg PO daily as patient states she tried cymbalta in the past and could not tolerate CVA continue coumadin 7.5mg check INR in AM Hypothyroidism levothyroxine 25mcg PO daily Vaginal Discharge white vaginal discharge per patient starting monistat Insomnia trazodone 50mg PO HS Ambien 5mg PO HS Prophylactic measure PT/OT All management as per Dr. Lauren
[2018-05-07] MEDS: Morphine 15 mg SR Tab PO SCH ×2 (11:38→21:03)
[2018-05-07] MEDS: Lidocaine 5% Patch TD SCH (11:39)
[2018-05-07 14:32] LABS: IRON 41 ug/dL (37-170)
[2018-05-07 14:42] LABS: % IRON SATURATION 9 (20-55); TOTAL IRON BINDING CAPACITY 443 ug/dL (250-450)
[2018-05-07 15:03] LABS: FERRITIN 24.9 ng/mL
[2018-05-07] MEDS: Miconazole 2% Vaginal Cream(45 gm) VG SCH (22:15)
[2018-05-08] MEDS: Levothyroxine 25 MCG TAB PO SCH (06:10)
[2018-05-08 06:50] LABS: BASO # 0.1 K/uL (0.0-0.2); BASO % 0.7 % (0.0-2.0); EOS # 0.1 K/uL (0.0-0.7); EOS % 1.2 % (0.0-4.0); HEMOGLOBIN 8.7 g/dL (11.0-16.0); LYMPH # 2.3 K/uL (1.0-4.3); MEAN CELL VOLUME 78.3 fL (81.0-99.0); MEAN CORPUSCULAR HGB CONC 31.9 g/dL (33.0-37.0); MEAN PLATELET VOLUME 9.2 fL (7.2-11.7); MONO # 0.7 K/uL (0.0-0.8); MONO % 7.9 % (0.0-10.0); NEUT # 5.4 K/uL (1.8-7.0); NEUT % 63.2 % (50.0-75.0); NRBC % 0.1 % (0.0-2.0); RBC 3.46 Mil/uL (3.80-5.20); RED CELL DISTRIBUTION WIDTH 18.8 % (11.5-14.5); WHITE BLOOD COUNT 8.5 K/uL (4.8-10.8)
[2018-05-08 06:52] LABS: INR 1.9; PROTHROMBIN TIME 20.7 SECONDS (9.7-12.2)
[2018-05-08] MEDS: Oxycodone/Acetaminophen 5/325 mg Tab PO PRN ×2 (06:52→15:53)
[2018-05-08 07:33] LABS: ALB/GLOB RATIO 1.4 (1.0-2.1); ALBUMIN 3.8 g/dL (3.5-5.0); ALT/SGPT 18 U/L (9-52); AST/SGOT 21 U/L (14-36); BLOOD UREA NITROGEN 8 mg/dL (7-17); GFR NON-AFRICAN AMERICAN > 60
[2018-05-08] MEDS: (Novolog) Insulin Aspart, Recombinant 100 u/ml 10 ml vial SC SCH ×4 (07:50→22:38)
[2018-05-08] MEDS ORDERED: Potassium Chloride 20 mEq ER Tab PO ONE ×2 (08:00→10:24)
[2018-05-08] MEDS: Lidocaine 5% Patch TD SCH (10:06)
[2018-05-08] MEDS: (Lantus) Insulin Glargine, Recombinant SC SCH ×2 (10:11→22:20)
[2018-05-08] MEDS: Morphine 15 mg SR Tab PO SCH ×2 (10:19→22:19)
--- NOTE | 2018-05-08 10:27 | CP.PCM.PN ---
Subjective - Date & Time of Evaluation Date of Evaluation: 05/08/18 Time of Evaluation: 10:25 - Subjective Subjective: PGY3 progress note for Dr. Lauren Pt seen and examined at bedside. No acute events overnight. Patient is lying in bed and ocntinues ot complain of low back pain L>R. Patient states that she occasionally sits up but is unable to walk or get out of bed. Patient states she has been unable to ambulate since September. Patient denies having any urinary or bowel incontinence. She states that she is unable to urinate while lying in bed and therefore is getting straight cath regularly. Patient denies having any CP, SOB, abd pain, N/V/D/C. Objective - Vital Signs/Intake and Output Vital Signs (last 24 hours): Temp Pulse Resp BP Pulse Ox 98.1 F 89 20 153/85 H 94 L 05/08/18 07:32 05/08/18 07:32 05/08/18 07:32 05/08/18 07:32 05/08/18 07:32 Intake and Output: 05/08/18 05/08/18 06:59 18:59 Intake Total 300 Output Total 1800 Balance -1500 - Medications Medications: Current Medications Amitriptyline HCl (Elavil) 25 mg PO [facility] Amlodipine Besylate (Norvasc) 10 mg PO DAILY [facility] Last Admin: 05/08/18 10:03 Dose: 10 mg Bethanechol Chloride (Urecholine) 10 mg PO TID [facility] 234 [facility]S [facility] Last Admin: 05/08/18 10:03 Dose: 10 mg Cyclobenzaprine HCl (Flexeril) 10 mg PO DAILY [facility] 234 B[facility]S [facility] Last Admin: 05/08/18 10:02 Dose: 10 mg Dextrose (Dextrose 50% Inj) 0 ml IVP .STAT PRN; Protocol PRN Reason: Hypoglycemia Protocol Dextrose (Glutose 15) 0 gm PO .ONCE PRN; Protocol PRN Reason: Hypoglycemia Protocol Docusate Sodium (Colace) 100 mg PO BID [facility] 234 BEDS [facility] Last Admin: 05/08/18 10:03 Dose: 100 mg Ferrous Gluconate (Fergon) 324 mg PO TID [facility] 234 BEDS AT [facility] Last Admin: 05/08/18 10:03 Dose: 324 mg Gabapentin (Neurontin) 800 mg PO QID [facility] 234 B[facility]S [facility] Last Admin: 05/08/18 10:03 Dose: 800 mg Glucagon (Glucagen Diagnostic Kit) 0 mg IM .STAT PRN; Protocol PRN Reason: Hypoglycemia Protocol Dextrose (Dextrose 5% In Water 1000 Ml) 1,000 mls @ 0 mls/hr IV .Q0M PRN; Protocol; Per Protocol PRN Reason: Hypoglycemia Protocol Ibuprofen (Motrin Tab) 800 mg PO Q8 PRN PRN Reason: Pain, Mild (1-3) Insulin Aspart (Novolog) 0 unit SC ACHS [facility] PRN Reason: Protocol Last Admin: 05/08/18 07:50 Dose: 2 units Insulin Glargine (Lantus) 50 unit SC Q12H [facility] 234 [facility]S [facility] Last Admin: 05/08/18 10:11 Dose: 50 u Ketorolac Tromethamine (Toradol) 30 mg IVP Q6 PRN PRN Reason: Pain, severe (8-10) Last Admin: 05/07/18 09:35 Dose: 30 mg Levothyroxine Sodium (Synthroid) 25 mcg PO DAILY@0630 [facility] 234 B[facility]S [facility] Last Admin: 05/08/18 06:10 Dose: 25 mcg Lidocaine (Lidoderm) 1 ea TD DAILY [facility] 234 [facility]S [facility] Last Admin: 05/08/18 10:06 Dose: 1 ea Losartan Potassium (Cozaar) 100 mg PO DAILY [facility] 234 BEDS [facility] Last Admin: 05/08/18 10:03 Dose: 100 mg Metformin HCl (Glucophage) 500 mg PO BRK [facility] 234 BEDS [facility] Last Admin: 05/08/18 07:50 Dose: 500 mg Miconazole Nitrate (Monistat 7 Vaginal Cream) 0 ea VG HS [facility] 234 BEDS AT [facility] Last Admin: 05/07/18 22:15 Dose: 1 unit Morphine Sulfate (Morphine Extended Release Tab) 15 mg PO Q12 [facility] 234 BEDS AT [facility] Last Admin: 05/08/18 10:19 Dose: 15 mg Oxycodone/Acetaminophen (Percocet 5/325 Mg Tab) 2 tab PO Q4H PRN PRN Reason: Pain, moderate (4-7) Stop: 05/08/18 20:34 Last Admin: 05/08/18 06:52 Dose: 2 tab Trazodone HCl (Desyrel) 50 mg PO HS [facility] 234 [facility]S [facility] Last Admin: 05/07/18 21:04 Dose: 50 mg Zolpidem Tartrate (Ambien) 5 mg PO HS [facility] 234 B[facility]S [facility] Last Admin: 05/07/18 21:03 Dose: 5 mg - Labs Labs: 05/08/18 06:35 05/08/18 06:35 PT 20.7 SECONDS (9.7-12.2) H 05/08/18 06:35 INR 1.9 05/08/18 06:35 APTT 41 SECONDS (21-34) H 05/05/18 15:22 - Constitutional Appears: Non-toxic, No Acute Distress - Head Exam Head Exam: ATRAUMATIC, NORMOCEPHALIC - ENT Exam ENT Exam: Mucous Membranes Moist - Respiratory Exam Respiratory Exam: Clear to Ausculation Bilateral, NORMAL BREATHING PATTERN. absent: Rales, Rhonchi, Wheezes - Cardiovascular Exam Cardiovascular Exam: REGULAR RHYTHM, RRR, +S1, +S2 - GI/Abdominal Exam GI & Abdominal Exam: Soft, Normal Bowel Sounds. absent: Distended, Firm, Guarding, Rigid - Back Exam Additional comments: patient is moving all four extremities. decreased sensation in B.L LE till mid thigh. - Neurological Exam Neurological Exam: Alert, Awake, Oriented x3 - Psychiatric Exam Psychiatric exam: Normal Affect, Normal Mood - Skin Skin Exam: Dry, Intact, Normal Color, Warm Assessment and Plan - Assessment and Plan (Free Text) Assessment: Back Pain patient with history of multiple disc herniations and spinal stenosis toradol 30mg IVP q6h prn starting MS contin 15mg BID flexeril 10mg PO daily lidoderm patch 5% daily ibuprofen 800mg q8prn percocet 2 tab PO q4prn Continue PT/OT Anemia iron studies ordered, ferretin 24.9, other studies pending will start PO iron with colace to help prevent constipation Urinary retention patient with difficulty urinating due to positioning in bed will not order bailey at this time straight cath as needed starting bethenechol 10mg PO TID HTN norvasc 10mg daily losartan 100mg daily continue to monitor Diabetes ISS Lantus 50u Q12h metformin 500mg daily accuchecks ACHS hypoglycemia protocol Neuropathy gabapentin 800mg PO QID adding elavil 25mg PO daily as patient states she tried cymbalta in the past and could not tolerate CVA continue coumadin 7.5mg check INR in AM Hypothyroidism levothyroxine 25mcg PO daily Vaginal Discharge white vaginal discharge per patient starting monistat Insomnia trazodone 50mg PO HS Ambien 5mg PO HS Prophylactic measure PT/OT Coumadin Case management consulted for discharge planning All management as per Dr. Lauren
[2018-05-08 11:53] LABS: ALBUMIN (PEP) 3.4 g/dL (3.8-4.8); ALPHA-1-GLOBULIN (PEP) 0.3 g/dL (0.2-0.3)
[2018-05-08] MEDS: (Novolin R) Insulin Human Regular 100 units/ml vial SC SCH ×2 (17:30→22:38)
[2018-05-08] MEDS: Miconazole 2% Vaginal Cream(45 gm) VG SCH (22:52)
[2018-05-09] MEDS: Oxycodone/Acetaminophen 5/325 mg Tab PO PRN ×4 (00:47→18:03)
[2018-05-09] MEDS: Levothyroxine 25 MCG TAB PO SCH (06:09)
[2018-05-09 07:23] LABS: HEMOGLOBIN 8.6 g/dL (11.0-16.0); MEAN CELL VOLUME 79.4 fL (81.0-99.0); MEAN CORPUSCULAR HEMOGLOBIN 25.3 pg (27.0-31.0); MEAN CORPUSCULAR HGB CONC 31.9 g/dL (33.0-37.0); RBC 3.39 Mil/uL (3.80-5.20); RED CELL DISTRIBUTION WIDTH 18.7 % (11.5-14.5); WHITE BLOOD COUNT 9.5 K/uL (4.8-10.8)
[2018-05-09 07:30] LABS: ALB/GLOB RATIO 1.2 (1.0-2.1); ALBUMIN 3.6 g/dL (3.5-5.0); ALT/SGPT 17 U/L (9-52); AST/SGOT 61 U/L (14-36); BLOOD UREA NITROGEN 8 mg/dL (7-17); CALCIUM 8.7 mg/dl (8.6-10.4); GFR NON-AFRICAN AMERICAN > 60
[2018-05-09] MEDS: (Novolog) Insulin Aspart, Recombinant 100 u/ml 10 ml vial SC SCH ×3 (07:49→17:14)
[2018-05-09] MEDS: Morphine 15 mg SR Tab PO SCH ×2 (10:21→21:08)
[2018-05-09] MEDS: (Lantus) Insulin Glargine, Recombinant SC SCH (10:22)
[2018-05-09] MEDS: Lidocaine 5% Patch TD SCH (10:27)
--- NOTE | 2018-05-09 10:42 | CP.PCM.PN ---
Addendum entered and electronically signed by Herminia Dior DO 05/09/18 16:31 : Patient has history of WPW, Atrial Fibrillation - reason for coumadin Original Note: <Herminia Dior - Last Filed: 05/09/18 14:59> Subjective - Date & Time of Evaluation Date of Evaluation: 05/09/18 Time of Evaluation: 09:00 - Subjective Subjective: Progress Note for Dr. Lauren's Service (Hospitalist Service is Covering) Patient was seen and examined at bedside. Patient reports she has lower back pain. She is agreeable to rehab. Denied any further complaints. ROS unremarkable. Objective - Vital Signs/Intake and Output Vital Signs (last 24 hours): Temp Pulse Resp BP Pulse Ox 98.8 F 113 H 20 156/91 H 95 05/09/18 08:09 05/09/18 08:09 05/09/18 08:09 05/09/18 08:09 05/09/18 08:09 Intake and Output: 05/09/18 05/09/18 06:59 18:59 Intake Total 350 Output Total 1350 Balance -1000 - Medications Medications: Current Medications Amitriptyline HCl (Elavil) 25 mg PO HS [facility] Last Admin: 05/08/18 22:19 Dose: 25 mg Amlodipine Besylate (Norvasc) 10 mg PO DAILY [facility] Last Admin: 05/09/18 10:21 Dose: 10 mg Bethanechol Chloride (Urecholine) 10 mg PO TID [facility] Last Admin: 05/09/18 10:21 Dose: 10 mg Cyclobenzaprine HCl (Flexeril) 10 mg PO DAILY [facility] Last Admin: 05/09/18 10:21 Dose: 10 mg Dextrose (Dextrose 50% Inj) 0 ml IVP .STAT PRN; Protocol PRN Reason: Hypoglycemia Protocol Dextrose (Glutose 15) 0 gm PO .ONCE PRN; Protocol PRN Reason: Hypoglycemia Protocol Docusate Sodium (Colace) 100 mg PO BID [facility] Last Admin: 05/09/18 10:21 Dose: 100 mg Ferrous Gluconate (Fergon) 324 mg PO TID [facility] Last Admin: 05/09/18 10:21 Dose: 324 mg Gabapentin (Neurontin) 800 mg PO QID [facility] Last Admin: 05/09/18 10:21 Dose: 800 mg Glucagon (Glucagen Diagnostic Kit) 0 mg IM .STAT PRN; Protocol PRN Reason: Hypoglycemia Protocol Dextrose (Dextrose 5% In Water 1000 Ml) 1,000 mls @ 0 mls/hr IV .Q0M PRN; Protocol; Per Protocol PRN Reason: Hypoglycemia Protocol Ibuprofen (Motrin Tab) 800 mg PO Q8 PRN PRN Reason: Pain, Mild (1-3) Insulin Aspart (Novolog) 0 unit SC ACHS [facility] PRN Reason: Protocol Last Admin: 05/09/18 07:49 Dose: 3 units Insulin Glargine (Lantus) 50 unit SC Q12H [facility] Last Admin: 05/09/18 10:22 Dose: 50 u Levothyroxine Sodium (Synthroid) 25 mcg PO DAILY@0630 [facility] Last Admin: 05/09/18 06:09 Dose: 25 mcg Lidocaine (Lidoderm) 1 ea TD DAILY [facility] Last Admin: 05/08/18 10:06 Dose: 1 ea Losartan Potassium (Cozaar) 100 mg PO DAILY [facility] Last Admin: 05/09/18 10:21 Dose: 100 mg Metformin HCl (Glucophage) 500 mg PO BRK [facility] Last Admin: 05/09/18 08:14 Dose: 500 mg Miconazole Nitrate (Monistat 7 Vaginal Cream) 0 ea VG HS [facility] Last Admin: 05/08/18 22:52 Dose: 1 applic Morphine Sulfate (Morphine Extended Release Tab) 15 mg PO Q12 [facility] Last Admin: 05/09/18 10:21 Dose: 15 mg Oxycodone/Acetaminophen (Percocet 5/325 Mg Tab) 2 tab PO Q4H PRN PRN Reason: Pain, moderate (4-7) Stop: 05/12/18 00:13 Last Admin: 05/09/18 06:10 Dose: 2 tab Trazodone HCl (Desyrel) 50 mg PO HS [facility] Last Admin: 05/08/18 22:19 Dose: 50 mg Zolpidem Tartrate (Ambien) 5 mg PO HS [facility] Last Admin: 05/08/18 22:19 Dose: 5 mg - Labs Labs: 05/09/18 06:48 05/09/18 06:48 PT 20.7 SECONDS (9.7-12.2) H 05/08/18 06:35 INR 1.9 05/08/18 06:35 APTT 41 SECONDS (21-34) H 05/05/18 15:22 - Additional Findings Additional findings: - Constitutional Appears: Non-toxic, No Acute Distress - Head Exam Head Exam: ATRAUMATIC, NORMOCEPHALIC - ENT Exam ENT Exam: Mucous Membranes Moist - Respiratory Exam Respiratory Exam: Clear to Ausculation Bilateral, NORMAL BREATHING PATTERN. absent: Rales, Rhonchi, Wheezes - Cardiovascular Exam Cardiovascular Exam: REGULAR RHYTHM, RRR, +S1, +S2 - GI/Abdominal Exam GI & Abdominal Exam: Soft, Normal Bowel Sounds. absent: Distended, Firm, Guarding, Rigid - Back Exam Additional comments: patient is moving all four extremities. decreased sensation in B.L LE till mid thigh. - Neurological Exam Neurological Exam: Alert, Awake, Oriented x3 - Psychiatric Exam Psychiatric exam: Normal Affect, Normal Mood - Skin Skin Exam: Dry, Intact, Normal Color, Warm Assessment and Plan - Assessment and Plan (Free Text) Plan: Spinal Stenosis Lumbar Disc Herniations Chronic Back Pain Medications: - toradol 30mg IVP q6h prn - flexeril 10mg PO daily - lidoderm patch 5% daily - ibuprofen 800mg q8prn - percocet 2 tab PO q4prn - starting MS contin 15mg BID - Continue PT/OT Iron Deficiency Anemia - Will start PO iron with colace to help prevent constipation Urinary retention - Patient with difficulty urinating due to positioning in bed - Will not order bailey at this time - Straight cath as needed - Started bethenechol 10mg PO TID HTN - norvasc 10mg daily - losartan 100mg daily - continue to monitor Diabetes - Accuchecks ACHS - Hypoglycemia protocol - ISS, Lantus 50u Q12h, metformin 500mg daily Neuropathy - Gabapentin 800mg PO QID - Adding elavil 25mg PO daily as patient states she tried cymbalta in the past and could not tolerate CVA - Continue coumadin 7.5mg - Check INR in AM Hypothyroidism - Levothyroxine 25mcg PO daily Vaginal Discharge - white vaginal discharge per patient - starting monistat Insomnia - trazodone 50mg PO HS - Ambien 5mg PO HS Prophylactic measure - PT/OT - Coumadin - Case management reffered Disposition: Patient is discharged to [facility]. Please follow up with Dr. Lauren within 1-2 weeks after discharge from [facility]. Resume all meds as instructed. Please take care and be well. DW Dr. Giraldo (covering for Dr. Lauren), Herminia Dior DO, PGY2 <Emily Giraldo V - Last Filed: 05/11/18 23:43> Objective - Vital Signs/Intake and Output Vital Signs (last 24 hours): Temp Pulse Resp BP Pulse Ox 97 F L 69 20 123/70 98 05/09/18 16:00 05/09/18 16:00 05/09/18 16:00 05/09/18 16:00 05/09/18 16:00 - Labs Labs: 05/09/18 06:48 05/09/18 06:48 PT 22.1 SECONDS (9.7-12.2) H 05/09/18 13:39 INR 2.0 05/09/18 13:39 APTT 41 SECONDS (21-34) H 05/05/18 15:22 Attending/Attestation - Attestation I have personally seen and examined this patient.: Yes I have fully participated in the care of the patient.: Yes I have reviewed all pertinent clinical information, including history, physical exam and plan: Yes Notes (Text): Hospitalist Service (Covering Dr. Lauren's service) patient seen, examined, and case discussed with day-time resident 42 year old Female with morbid obesity, spinal stenosis; lumbar disc herniations , chronic back pain, anemia, hypertension, diabetes, neuropathy, prior WPW, prior CVA is presently hospitalized for back pain which has limited her mobility and use including relieving in bathroom both stool and urine. Patient has undergoing workup for multiple myeloma, which she does not have per SPEP. Patient has opted and agreeable to subacute rehab in regards to her back pain. Patient understands there is addictive potential to her narcotic pain medication and is aware to follow-up with pain management. Patient is seeing a back specialist as outpatient, recommended for surgery, however given her weight which poses high risk to surgery, she will need to reduce weight prior to surgery evaluation. Patient counselled extensively at bedside in regards to weight loss, exercise, and pursuit bariatric dietary specialist to assist in weight loss to help improve her overall health. prior to rehab, patient was apparently very hesitant, however her back pain did limit her mobility and her use of day to day including relieving her bowel and urine secondary ot pain. I have spoken with case management and social work. Patient does have rehab spot and were able to retrieve authorization later today. patient is agreeable to rehab for further conditioning. Patient to follow-up with her PMD, Dr. Lauren upon discharge
[2018-05-09 13:52] LABS: PROTHROMBIN TIME 22.1 SECONDS (9.7-12.2)
[2018-05-09 16:13] VITALS: BP 123/70; PULSE 69; TEMP 97; O2SAT 98
--- NOTE | 2018-05-09 16:35 | CP.PCM.DIS ---
<Herminia Dior - Last Filed: 05/09/18 16:32> Provider - Provider Date of Admission: 05/08/18 07:44 Attending physician: Eva Lauren MD Time Spent in preparation of Discharge (in minutes): 55 Hospital Course - Lab Results Lab Results: Most Recent Lab Values WBC 9.5 K/uL (4.8-10.8) 05/09/18 06:48 RBC 3.39 Mil/uL (3.80-5.20) L 05/09/18 06:48 Hgb 8.6 g/dL (11.0-16.0) L 05/09/18 06:48 Hct 26.9 % (34.0-47.0) L 05/09/18 06:48 MCV 79.4 fL (81.0-99.0) L 05/09/18 06:48 MCH 25.3 pg (27.0-31.0) L 05/09/18 06:48 MCHC 31.9 g/dL (33.0-37.0) L 05/09/18 06:48 RDW 18.7 % (11.5-14.5) H 05/09/18 06:48 Plt Count 350 K/uL (130-400) 05/09/18 06:48 MPV 9.0 fL (7.2-11.7) 05/09/18 06:48 Neut % (Auto) 63.2 % (50.0-75.0) 05/08/18 06:35 Lymph % (Auto) 27.0 % (20.0-40.0) 05/08/18 06:35 [place] % (Auto) 7.9 % (0.0-10.0) 05/08/18 06:35 Eos % (Auto) 1.2 % (0.0-4.0) 05/08/18 06:35 Baso % (Auto) 0.7 % (0.0-2.0) 05/08/18 06:35 Neut # (Auto) 5.4 K/uL (1.8-7.0) 05/08/18 06:35 Lymph # (Auto) 2.3 K/uL (1.0-4.3) 05/08/18 06:35 [place] # (Auto) 0.7 K/uL (0.0-0.8) 05/08/18 06:35 Eos # (Auto) 0.1 K/uL (0.0-0.7) 05/08/18 06:35 Baso # (Auto) 0.1 K/uL (0.0-0.2) 05/08/18 06:35 Retic Count 7.5 % (0.5-1.5) H 05/08/18 06:35 PT 22.1 SECONDS (9.7-12.2) H 05/09/18 13:39 INR 2.0 05/09/18 13:39 APTT 41 SECONDS (21-34) H 05/05/18 15:22 Sodium 138 mmol/L (132-148) 05/09/18 06:48 Potassium 4.8 mmol/L (3.6-5.2) 05/09/18 06:48 Chloride 105 mmol/L (98-107) 05/09/18 06:48 Carbon Dioxide 24 mmol/L (22-30) 05/09/18 06:48 Anion Gap 13 (10-20) 05/09/18 06:48 BUN 8 mg/dL (7-17) 05/09/18 06:48 Creatinine 0.6 mg/dL (0.7-1.2) L 05/09/18 06:48 Est GFR ( Amer) > 60 05/09/18 06:48 Est GFR (Non-Af Amer) > 60 05/09/18 06:48 POC Glucose (mg/dL) 200 mg/dL (65-110) H 05/09/18 11:00 Random Glucose 208 mg/dL (65-105) H 05/09/18 06:48 Calcium 8.7 mg/dl (8.6-10.4) 05/09/18 06:48 Phosphorus 4.4 mg/dL (2.5-4.5) 05/08/18 06:35 Magnesium 1.7 mg/dL (1.6-2.3) 05/08/18 06:35 Iron 41 ug/dL (37-170) 05/07/18 14:00 TIBC 443 ug/dL (250-450) 05/07/18 14:00 % Saturation 9 (20-55) L 05/07/18 14:00 Ferritin 24.9 ng/mL 05/07/18 14:00 Total Bilirubin 1.1 mg/dL (0.2-1.3) 05/09/18 06:48 AST 61 U/L (14-36) H D 05/09/18 06:48 ALT 17 U/L (9-52) 05/09/18 06:48 Alkaline Phosphatase 85 U/L (38-126) 05/09/18 06:48 Total Protein 6.6 g/dL (6.3-8.3) 05/09/18 06:48 Total Protein (PEP) 6.1 g/dL (6.1-8.1) 05/07/18 14:02 Albumin 3.6 g/dL (3.5-5.0) 05/09/18 06:48 Albumin (PEP) 3.4 g/dL (3.8-4.8) L 05/07/18 14:02 Globulin 3.0 gm/dL (2.2-3.9) 05/09/18 06:48 Albumin/Globulin Ratio 1.2 (1.0-2.1) 05/09/18 06:48 Leggx-2-Hpjzzfywh 0.3 g/dL (0.2-0.3) 05/07/18 14:02 Luuuu-8-Xplibavwc 0.7 g/dL (0.5-0.9) 05/07/18 14:02 Lpnv-3-Lwgwhmrr 0.5 g/dL (0.4-0.6) 05/07/18 14:02 Rvbu-9-Suvxjpyt 0.4 g/dL (0.2-0.5) 05/07/18 14:02 Gamma Globulins 0.8 g/dL (0.8-1.7) 05/07/18 14:02 Abnorm Protein Band 1 TEST NOT PERFORMED 05/07/18 14:02 Abnorm Protein Band 2 TEST NOT PERFORMED 05/07/18 14:02 Abnorm Protein Band 3 TEST NOT PERFORMED 05/07/18 14:02 Lipase 108 U/L (23-300) 05/05/18 15:22 Vitamin B12 381 pg/mL (239-931) 05/07/18 14:00 Urine Color Yellow (YELLOW) 05/05/18 17:52 Urine Clarity Clear (Clear) 05/05/18 17:52 Urine pH 6.0 (5.0-8.0) 05/05/18 17:52 Ur Specific [place] 1.017 (1.003-1.030) 05/05/18 17:52 Urine Protein Negative mg/dL (NEGATIVE) 05/05/18 17:52 Urine Glucose (UA) Normal mg/dL (Normal) 05/05/18 17:52 Urine Ketones Negative mg/dL (NEGATIVE) 05/05/18 17:52 Urine Blood Negative (NEGATIVE) 05/05/18 17:52 Urine Nitrate Negative (NEGATIVE) 05/05/18 17:52 Urine Bilirubin Negative (NEGATIVE) 05/05/18 17:52 Urine Urobilinogen 2.0 mg/dL (0.2-1.0) H 05/05/18 17:52 Ur Leukocyte Esterase Neg Eliud/uL (Negative) 05/05/18 17:52 Urine WBC (Auto) 2 /hpf (0-5) 05/05/18 17:52 Urine RBC (Auto) 8 /hpf (0-3) H 05/05/18 17:52 Ur Squamous Epith Cells 1 /hpf (0-5) 05/05/18 17:52 Urine Bacteria Rare (<OCC) 05/05/18 17:52 Urine HCG, Qual Negative (NEGATIVE) 05/05/18 17:52 RIVERA & SPEP Interp See note 05/07/18 14:02 - Hospital Course Hospital Course: Upon Admission: Patient is a 42F with PMHx of CVA, HTN, DM, neuropathy, WPW s/p multiple ablation attempts who presented to the ER on 05/05 with acute on chronic back pain. Patient has history of 4 herniated discs and spinal stenosis. She reports back pain began last April after a slip and fall at home where she fell on her back. Patient states that she is following with neurosurgeon Dr. Roque as outpatient with plans for intervention in the near future. Patient states that she also suffers from severe neuropathy in her legs which has caused her to have numbness and tingling in her bilateral lower extremities. Patient reports that overnight she could not empty her bladder due to positioning. She states that she cannot urinate on a bedpan due to back pain from positioning but could not get out of bed to use commode. Patient also reports that she has been evaluated by bariatric surgeon for weight loss surgery but was told she will not be a candidate until she has her spinal surgery. PMHx: CVA in 2010, HTN, DM, neuropathy, WPW, spinal stenosis, 4 disc herniations PMD: Dr. Lauren OutPt Cardio: Dr. Mehta Meds:Metformin 500mg daily, Invokana 100mg, Percocet 10/325, trazodone 50 HS, Ambien 10mg HS, Novolog 15u TIDAC, Gabapentin 800mg QID, Norvasc 10mg daily, coumadin 7.5mg PO daily (secondary stroke prevention), Valsartan 320mg, sotalol 80mg BID, levothyroxine 25mcg, basaglar 50u BID Throughout Hospital Course: Spinal Stenosis Lumbar Disc Herniations Chronic Back Pain Medications: - toradol 30mg IVP q6h prn - flexeril 10mg PO daily - lidoderm patch 5% daily - ibuprofen 800mg q8prn - percocet 2 tab PO q4prn - starting MS contin 15mg BID - Continue PT/OT Iron Deficiency Anemia - Will start PO iron with colace to help prevent constipation Urinary retention - Patient with difficulty urinating due to positioning in bed - Will not order bailey at this time - Straight cath as needed - Started bethenechol 10mg PO TID WPW, Atrial Fibrillation - Continue coumadin 7.5mg HTN - norvasc 10mg daily - losartan 100mg daily - continue to monitor Diabetes - Accuchecks ACHS - Hypoglycemia protocol - ISS, Lantus 50u Q12h, metformin 500mg daily Neuropathy - Gabapentin 800mg PO QID - Adding elavil 25mg PO daily as patient states she tried cymbalta in the past and could not tolerate CVA Hypothyroidism - Levothyroxine 25mcg PO daily Vaginal Discharge - white vaginal discharge per patient - starting monistat Insomnia - trazodone 50mg PO HS - Ambien 5mg PO HS Patient discharge to [facility]. Please review EMR for full record. Discharge Exam - Additional Findings Additional findings: - Constitutional Appears: Non-toxic, No Acute Distress - Head Exam Head Exam: ATRAUMATIC, NORMOCEPHALIC - ENT Exam ENT Exam: Mucous Membranes Moist - Respiratory Exam Respiratory Exam: Clear to Ausculation Bilateral, NORMAL BREATHING PATTERN. absent: Rales, Rhonchi, Wheezes - Cardiovascular Exam Cardiovascular Exam: REGULAR RHYTHM, RRR, +S1, +S2 - GI/Abdominal Exam GI & Abdominal Exam: Soft, Normal Bowel Sounds. absent: Distended, Firm, Guarding, Rigid - Back Exam Additional comments: patient is moving all four extremities. decreased sensation in B.L LE till mid thigh. - Neurological Exam Neurological Exam: Alert, Awake, Oriented x3 - Psychiatric Exam Psychiatric exam: Normal Affect, Normal Mood - Skin Skin Exam: Dry, Intact, Normal Color, Warm Discharge Plan - Discharge Medications Prescriptions: Polyethylene Glycol 3350 [Miralax] 17 gm PO DAILY #30 powd.pack - Follow Up Plan Condition: STABLE Disposition: REHAB FACILITY/REHAB UNIT Instructions: Chronic Pain (DC), Low Back Pain (DC), Herniated Disc (DC) Additional Instructions: Please follow up with Dr. Lauren within 1-2 weeks after discharge from [facility]. Please follow up with Dr. Nash in 1-2 weeks after discharge from [facility]. Resume all meds as instructed. Please take care and be well. Referrals: Braden Nash MD [Staff Provider] - Eva Lauren MD [Staff Provider] - <LaidanteEmily V - Last Filed: 05/11/18 23:44> Provider - Provider Date of Admission: 05/08/18 07:44 Attending physician: Eva Lauren MD Hospital Course - Lab Results Lab Results: Most Recent Lab Values WBC 9.5 K/uL (4.8-10.8) 05/09/18 06:48 RBC 3.39 Mil/uL (3.80-5.20) L 05/09/18 06:48 Hgb 8.6 g/dL (11.0-16.0) L 05/09/18 06:48 Hct 26.9 % (34.0-47.0) L 05/09/18 06:48 MCV 79.4 fL (81.0-99.0) L 05/09/18 06:48 MCH 25.3 pg (27.0-31.0) L 05/09/18 06:48 MCHC 31.9 g/dL (33.0-37.0) L 05/09/18 06:48 RDW 18.7 % (11.5-14.5) H 05/09/18 06:48 Plt Count 350 K/uL (130-400) 08/31/18 06:48 MPV 9.0 fL (7.2-11.7) 05/09/18 06:48 Neut % (Auto) 63.2 % (50.0-75.0) 05/08/18 06:35 Lymph % (Auto) 27.0 % (20.0-40.0) 05/08/18 06:35 [place] % (Auto) 7.9 % (0.0-10.0) 05/08/18 06:35 Eos % (Auto) 1.2 % (0.0-4.0) 05/08/18 06:35 Baso % (Auto) 0.7 % (0.0-2.0) 05/08/18 06:35 Neut # (Auto) 5.4 K/uL (1.8-7.0) 05/08/18 06:35 Lymph # (Auto) 2.3 K/uL (1.0-4.3) 05/08/18 06:35 [place] # (Auto) 0.7 K/uL (0.0-0.8) 05/08/18 06:35 Eos # (Auto) 0.1 K/uL (0.0-0.7) 05/08/18 06:35 Baso # (Auto) 0.1 K/uL (0.0-0.2) 05/08/18 06:35 Retic Count 7.5 % (0.5-1.5) H 05/08/18 06:35 PT 22.1 SECONDS (9.7-12.2) H 05/09/18 13:39 INR 2.0 05/09/18 13:39 APTT 41 SECONDS (21-34) H 05/05/18 15:22 Sodium 138 mmol/L (132-148) 05/09/18 06:48 Potassium 4.8 mmol/L (3.6-5.2) 05/09/18 06:48 Chloride 105 mmol/L (98-107) 05/09/18 06:48 Carbon Dioxide 24 mmol/L (22-30) 05/09/18 06:48 Anion Gap 13 (10-20) 05/09/18 06:48 BUN 8 mg/dL (7-17) 05/09/18 06:48 Creatinine 0.6 mg/dL (0.7-1.2) L 05/09/18 06:48 Est GFR ( Amer) > 60 05/09/18 06:48 Est GFR (Non-Af Amer) > 60 05/09/18 06:48 POC Glucose (mg/dL) 126 mg/dL (65-110) H 05/09/18 16:54 Random Glucose 208 mg/dL (65-105) H 05/09/18 06:48 Calcium 8.7 mg/dl (8.6-10.4) 05/09/18 06:48 Phosphorus 4.4 mg/dL (2.5-4.5) 05/08/18 06:35 Magnesium 1.7 mg/dL (1.6-2.3) 05/08/18 06:35 Iron 41 ug/dL (37-170) 05/07/18 14:00 TIBC 443 ug/dL (250-450) 05/07/18 14:00 % Saturation 9 (20-55) L 05/07/18 14:00 Ferritin 24.9 ng/mL 05/07/18 14:00 Total Bilirubin 1.1 mg/dL (0.2-1.3) 05/09/18 06:48 AST 61 U/L (14-36) H D 05/09/18 06:48 ALT 17 U/L (9-52) 05/09/18 06:48 Alkaline Phosphatase 85 U/L (38-126) 05/09/18 06:48 Total Protein 6.6 g/dL (6.3-8.3) 05/09/18 06:48 Total Protein (PEP) 6.1 g/dL (6.1-8.1) 05/07/18 14:02 Albumin 3.6 g/dL (3.5-5.0) 05/09/18 06:48 Albumin (PEP) 3.4 g/dL (3.8-4.8) L 05/07/18 14:02 Globulin 3.0 gm/dL (2.2-3.9) 05/09/18 06:48 Albumin/Globulin Ratio 1.2 (1.0-2.1) 05/09/18 06:48 Awyap-6-Pzclxyuup 0.3 g/dL (0.2-0.3) 05/07/18 14:02 Kxfgl-7-Hirxetnin 0.7 g/dL (0.5-0.9) 05/07/18 14:02 Yomx-5-Ljjiotrt 0.5 g/dL (0.4-0.6) 05/07/18 14:02 Pgqs-5-Dverqlqh 0.4 g/dL (0.2-0.5) 05/07/18 14:02 Gamma Globulins 0.8 g/dL (0.8-1.7) 05/07/18 14:02 Abnorm Protein Band 1 TEST NOT PERFORMED 05/07/18 14:02 Abnorm Protein Band 2 TEST NOT PERFORMED 05/07/18 14:02 Abnorm Protein Band 3 TEST NOT PERFORMED 05/07/18 14:02 Lipase 108 U/L (23-300) 05/05/18 15:22 Vitamin B12 381 pg/mL (239-931) 05/07/18 14:00 Urine Color Yellow (YELLOW) 05/05/18 17:52 Urine Clarity Clear (Clear) 05/05/18 17:52 Urine pH 6.0 (5.0-8.0) 05/05/18 17:52 Ur Specific [place] 1.017 (1.003-1.030) 05/05/18 17:52 Urine Protein Negative mg/dL (NEGATIVE) 05/05/18 17:52 Urine Glucose (UA) Normal mg/dL (Normal) 05/05/18 17:52 Urine Ketones Negative mg/dL (NEGATIVE) 05/05/18 17:52 Urine Blood Negative (NEGATIVE) 05/05/18 17:52 Urine Nitrate Negative (NEGATIVE) 05/05/18 17:52 Urine Bilirubin Negative (NEGATIVE) 05/05/18 17:52 Urine Urobilinogen 2.0 mg/dL (0.2-1.0) H 05/05/18 17:52 Ur Leukocyte Esterase Neg Eliud/uL (Negative) 05/05/18 17:52 Urine WBC (Auto) 2 /hpf (0-5) 05/05/18 17:52 Urine RBC (Auto) 8 /hpf (0-3) H 05/05/18 17:52 Ur Squamous Epith Cells 1 /hpf (0-5) 05/05/18 17:52 Urine Bacteria Rare (<OCC) 05/05/18 17:52 Urine HCG, Qual Negative (NEGATIVE) 05/05/18 17:52 RIVERA & SPEP Interp See note 05/07/18 14:02 Attending/Attestation - Attestation I have personally seen and examined this patient.: Yes I have fully participated in the care of the patient.: Yes I have reviewed all pertinent clinical information, including history, physical exam and plan: Yes Notes (Text): This is late computer entry for 05/09/18. patient seen, examined, and case discussed with day-time resident 42 year old Female with morbid obesity, spinal stenosis; lumbar disc herniations , chronic back pain, anemia, hypertension, diabetes, neuropathy, prior WPW, prior CVA is presently hospitalized for back pain which has limited her mobility and use including relieving in bathroom both stool and urine. Patient has undergoing workup for multiple myeloma, which she does not have per SPEP. Patient has opted and agreeable to subacute rehab in regards to her back pain. Patient understands there is addictive potential to her narcotic pain medication and is aware to follow-up with pain management. Patient is seeing a back specialist as outpatient, recommended for surgery, however given her weight which poses high risk to surgery, she will need to reduce weight prior to surgery evaluation. Patient counselled extensively at bedside in regards to weight loss, exercise, and pursuit bariatric dietary specialist to assist in weight loss to help improve her overall health. prior to rehab, patient was apparently very hesitant, however her back pain did limit her mobility and her use of day to day including relieving her bowel and urine secondary ot pain. I have spoken with case management and social work. Patient does have rehab spot and were able to retrieve authorization later today. patient is agreeable to rehab for further conditioning. Patient to follow-up with her PMD, Dr. Lauren upon discharge. Patient recommended to f/u with Dr. nash in regards to her anemia who she has seen in the past.
== END 2018-05-09 21:15 | DRG 243 ==
LOC: C.ER 13:43 → C.9E 18:08 → C.3T 19:55 → OBSVTOIN 05-08 07:44 → C.3T 05-08 17:19
PROVIDERS: ADMIT Internal Medicine Pulmonary Disease; ATTEND Internal Medicine Pulmonary Disease
DX: M51.26 Other intervertebral disc displacement, lumbar region (principal); E11.40 Type 2 diabetes mellitus with diabetic neuropathy, unspecified; D64.9 Anemia, unspecified; E03.9 Hypothyroidism, unspecified; G47.00 Insomnia, unspecified; G89.29 Other chronic pain; I10 Essential (primary) hypertension; M48.061 Spinal stenosis, lumbar region without neurogenic claudication; N89.8 Other specified noninflammatory disorders of vagina; Z79.01 Long term (current) use of anticoagulants; Z79.84 Long term (current) use of oral hypoglycemic drugs; Z79.899 Other long term (current) drug therapy; Z86.73 Personal history of transient ischemic attack (TIA), and cerebral infarction without residual deficits

== ENCOUNTER 2018-06-29 11:37 | Emergency (ER) | payer MEDICAID ==
[2018-06-29 11:38] VITALS: BMI 39.9
[2018-06-29 11:48] VITALS: TEMP 98.3
[2018-06-29] MEDS ORDERED: Lidocaine 1% Inj (20ml) INFIL ONE (12:40)
[2018-06-29] MEDS ORDERED: Lidocaine 2% MPF (5 ml) Inj ONE (12:44)
--- NOTE | 2018-06-29 12:46 | C.PDOC ---
Chief Complaint (Nursing): Abnormal Skin Integrity Past Medical History Vital Signs: Last Vital Signs Temp 98.3 F 06/29/18 11:45 Pulse 86 06/29/18 11:45 Resp 16 06/29/18 11:45 BP 141/84 06/29/18 11:45 Pulse Ox 92 L 06/29/18 11:45 - Medical History PMH: CVA, Diabetes, HTN Denies: Chronic Kidney Disease Family History: States: Unknown Family Hx - Social History Hx Alcohol Use: No Hx Substance Use: No - Immunization History Hx Tetanus Toxoid Vaccination: Yes Hx Influenza Vaccination: Yes Hx Pneumococcal Vaccination: Yes ED Course And Treatment O2 Sat by Pulse Oximetry: 92 Disposition - Disposition
--- NOTE | 2018-06-29 12:48 | C.PDOC ---
History Of Present Illness 43 y/o female with PMHx of HTN, DM, CVA, current smoker presents to ED via EMS with complaints of right breast pain x 1 week. Patient states that she has had worsening area of redness and tenderness to lateral, inferior right breast that is now draining yellow fluid. Patient has not taken any pain medications. Patient had similar symptoms once 20 years ago, successfully treated with I&D. Pt has never had a mammogram. Also c/o dry cough x 2 days. Pt tolerating PO intake, admits to eating a full meal this morning before coming to ED. Denies fever, chills, nipple swelling or discharge, breast masses, left breast pain, chest pain, headache, abdominal pain, nausea, or vomiting. Chief Complaint (Nursing): Abnormal Skin Integrity History Per: Patient History/Exam Limitations: no limitations Onset/Duration Of Symptoms: Days Current Symptoms Are (Timing): Still Present Past Medical History Reviewed: Historical Data, Nursing Documentation, Vital Signs Vital Signs: Last Vital Signs Temp 98.3 F 06/29/18 11:45 Pulse 86 06/29/18 11:45 Resp 16 06/29/18 11:45 BP 141/84 06/29/18 11:45 Pulse Ox 92 L 06/29/18 11:45 - Medical History PMH: CVA, Diabetes, HTN Denies: Chronic Kidney Disease Family History: States: No Known Family Hx - Social History Hx Alcohol Use: No Hx Substance Use: No - Immunization History Hx Tetanus Toxoid Vaccination: Yes Hx Influenza Vaccination: Yes Hx Pneumococcal Vaccination: Yes Review Of Systems Except As Marked, All Systems Reviewed And Found Negative. Constitutional: Negative for: Fever, Chills Eyes: Negative for: Vision Change ENT: Negative for: Ear Pain, Ear Discharge, Nose Pain, Nose Discharge, Nose Congestion, Mouth Pain, Mouth Swelling, Throat Pain, Throat Swelling Cardiovascular: Negative for: Chest Pain, Palpitations Respiratory: Positive for: Cough. Negative for: Shortness of Breath, Hemoptysis, Sputum, Wheezing Gastrointestinal: Negative for: Nausea, Vomiting Skin: Positive for: Other (Right breast pain; red, tender area draining yellow fluid) Neurological: Negative for: Weakness, Numbness, Headache, Dizziness Physical Exam - Physical Exam Appears: Non-toxic, No Acute Distress, Unkempt Skin: Warm, Dry Head: Atraumatic, Normacephalic, No Tenderness, No Swelling Eye(s): bilateral: Normal Inspection, PERRL, EOMI Ear(s): Bilateral: Normal Nose: Normal, No Epistaxis Oral Mucosa: Moist Throat: Normal, No Erythema, No Exudate Neck: Normal, Normal ROM, No Paracervical Tenderness Lymphatic: Normal Exam, No Adenopathy Chest: No Deformity, Other (R breast: 6cm x 4cm area of redness and swelling to R lateral, inferior breast - area indurated with [id number] central area of f luctuance with overlying black eschar, draining yellow fluid; L breast: normal, nontender, no masses) Cardiovascular: Rhythm Regular, No Murmur Respiratory: Normal Breath Sounds, No Decreased Breath Sounds, No Accessory Muscle Use, No Rales, No Rhonchi, No Stridor, No Wheezing, No Plerual Rub Gastrointestinal/Abdominal: Normal Exam, Soft, No Tenderness Extremity: Normal ROM, No Tenderness, No Deformity Extremity: Bilateral: Atraumatic, Normal Color And Temperature, Normal ROM Pulses: Left Radial: Normal, Right Radial: Normal Neurological/Psych: Oriented x3, Normal Speech, Normal Cognition, Normal Cranial Nerves, Normal Motor, Normal Sensation Gait: Unable To Assess (pt unwilling/unable to ambulate) ED Course And Treatment - Laboratory Results Result Diagrams: 06/29/18 14:13 06/29/18 14:13 Lab Interpretation: No Acute Changes O2 Sat by Pulse Oximetry: 92 (RA) Pulse Ox Interpretation: Normal - Other Rad CXR X-Ray: Read By Radiologist Interpretation: FINDINGS: LUNGS: No active pulmonary disease. PLEURA: No significant pleural effusion identified, no pneumothorax apparent. CARDIOVASCULAR: No atherosclerotic calcification present. No radiographic findings to suggest acute or significant cardiovascular disease. OSSEOUS STRUCTURES: No significant abnormalities. VISUALIZED UPPER ABDOMEN: Normal. OTHER FINDINGS: None. IMPRESSION: No active disease. Medical Decision Making Medical Decision Making: Initial plan: --Pain control --CBC --CMP --CXR --Wound cultures --Consult general surgery Case discussed with Krystal Suero PA-C Pulse ox low, will ask nursing to recheck. Pt is a current smoker. On re-eval, pt reports decreased pain Paged general surgery 3 times, no response. Spoke with Dr. Mascorro, who came to evaluate pt for general surgeon Dr. Patel. She will do bedside I&D. Recommends IV Clindamycin with blood cultures prior. Procedure successful, general surgery recommendations as stated below per Dr. Mascorro. Pt tolerated well. CXR: no active disease, read by radiologist Discussed results with pt and educated on importance of med compliance and followup with general surgery. Pt shows understanding and agrees with plan of care. Pt comfortable with and stable for discharge home. Will arrange for transport. Pt in FT waiting for transport home, will order diet. Impression: Right breast abscess Plan: Followup in Dr. Patel's office on Saturday as scheduled for wound check Take antibiotic every 6 hours for 1 week Keep dressing in place until Saturday, and then change Leave packing in until followup Advil/Tylenol for pain Continue home meds as prescribed Return to ED for new or worsening symptoms Disposition Discussed With : Gisselle Patel Doctor Will See Patient In The: Office Counseled Patient/Family Regarding: Studies Performed, Diagnosis, Need For Foll owup, Rx Given - Disposition Referrals: [facility] [Outside] Disposition: HOME/ ROUTINE Disposition Time: 16:00 Condition: IMPROVED Additional Instructions: Followup in Dr. Patel's office on Saturday as scheduled for wound check Take antibiotic every 6 hours for 1 week Keep dressing in place until Saturday, and then change Leave packing in until followup Advil/Tylenol for pain Continue home meds as prescribed Return to ED for new or worsening symptoms Prescriptions: RX: Clindamycin [Cleocin] 300 mg PO Q6H #28 cap Forms: [facility] (Tajik), Work Excuse - Clinical Impression Clinical Impression: Breast abscess - PA / GROUNDMAN/LINEMAN / Resident Statement MD/DO has reviewed & agrees with the documentation as recorded. - Scribe Statement The provider has reviewed the documentation as recorded by the Scribe Gloria Reich All medical record entries made by the Scribe were at my direction and personally dictated by me. I have reviewed the chart and agree that the record accurately reflects my personal performance of the history, physical exam, medical decision making, and the department course for this patient. I have also personally directed, reviewed, and agree with the discharge instructions and disposition.
[2018-06-29 14:17] VITALS: BP 146/83; PULSE 93; RESP 18
[2018-06-29 14:27] LABS: BASO % 0.4 % (0.0-2.0); EOS # 0.1 K/uL (0.0-0.7); EOS % 0.8 % (0.0-4.0); LYMPH # 1.8 K/uL (1.0-4.3); LYMPH % 23.6 % (20.0-40.0); MEAN CORPUSCULAR HEMOGLOBIN 28.7 pg (27.0-31.0); MEAN CORPUSCULAR HGB CONC 33.2 g/dL (33.0-37.0); MEAN PLATELET VOLUME 9.2 fL (7.2-11.7); MONO # 0.5 K/uL (0.0-0.8); MONO % 6.6 % (0.0-10.0); NEUT # 5.2 K/uL (1.8-7.0); NEUT % 68.6 % (50.0-75.0); RBC 5.09 Mil/uL (3.80-5.20); WHITE BLOOD COUNT 7.6 K/uL (4.8-10.8)
[2018-06-29 14:28] LABS: INR 1.9; PROTHROMBIN TIME 20.8 SECONDS (9.7-12.2)
[2018-06-29 14:29] LABS: HEMOGLOBIN 14.6 g/dL (11.0-16.0); MEAN CELL VOLUME 86.4 fL (81.0-99.0)
[2018-06-29 14:33] LABS: ALB/GLOB RATIO 1.2 (1.0-2.1); ALBUMIN 4.1 g/dL (3.5-5.0); ALT/SGPT 30 U/L (9-52); AST/SGOT 25 U/L (14-36); BLOOD UREA NITROGEN 9 mg/dL (7-17); CALCIUM 9.1 mg/dl (8.6-10.4); GFR NON-AFRICAN AMERICAN > 60
[2018-06-29] MEDS ORDERED: Clindamycin 300 MG in Sodium Chloride 0.9% 50 ML IVPB STA (14:50)
[2018-06-29] MEDS ORDERED: Lidocaine 1%/Epinephrine 1:100000 30 ml vial IJ ONE (15:16)
[2018-06-29] MEDS ORDERED: Lidocaine 2% w Epi 1:100,000 Inj IJ ONE (15:26)
[2018-06-29 16:08] VITALS: O2SAT 92
--- NOTE | 2018-06-29 16:27 | RAD ---
Date of service: 06/29/2018 HISTORY: r/o PNA COMPARISON: No prior. FINDINGS: LUNGS: No active pulmonary disease. PLEURA: No significant pleural effusion identified, no pneumothorax apparent. CARDIOVASCULAR: No atherosclerotic calcification present No radiographic findings to suggest acute or significant cardiovascular disease. OSSEOUS STRUCTURES: No significant abnormalities. VISUALIZED UPPER ABDOMEN: Normal. OTHER FINDINGS: None. IMPRESSION: No active disease.
--- NOTE | 2018-06-29 16:28 | CP.PCM.CON ---
History of Present Illness - History of Present Illness History of Present Illness: General Surgery consult note for Dr. Patel Consulted for: R breast abscess Pt is a 43F with PMH including DM and hypothyroidism and morbid obesity who presented to the ED with 1 week of worsening right breast swelling and erythema. Patient states that the spot started as a small lump in the lateral inferior quadrant of the right breast that got increasingly painful and erythematous over a week, and started draining some yellow fluid today. Patient states that this happened once before on the left breast when she was and was successfully treated with I&D. Patient denies any fevers, chills, Chest pain, SOB, nausea, vomiting, numbness or tingling, nipple discharge, or any other masses/breast changes. She has never had a mammogram. PMH of DM, HTN, CVA, neuropathy, WPW, spinal stenosis, hypothyroid, insomnia PSH: , cholecystectomy, incision and drainage of left breast abscess ALL: pepcid Social: denies all substances Review of Systems - Review of Systems All systems: reviewed and no additional remarkable complaints except (as per HPI) Past Patient History - Past Medical History & Family History Past Medical History?: Yes Past Family History: Reviewed and not pertinent - Past Social History Smoking Status: Never Smoked Alcohol: None Drugs: Denies - CARDIAC Hx Hypertension: Yes - PULMONARY Hx Respiratory Disorders: No - NEUROLOGICAL Hx Neurological Disorder: Yes HX Cerebrovascular Accident: Yes - HEENT Hx HEENT Problems: No - RENAL Hx Chronic Kidney Disease: No - ENDOCRINE/METABOLIC Hx Endocrine Disorders: Yes Hx Diabetes Mellitus Type 2: Yes - HEMATOLOGICAL/ONCOLOGICAL Hx Blood Disorders: No - INTEGUMENTARY Hx Dermatological Problems: No - MUSCULOSKELETAL/RHEUMATOLOGICAL Hx Musculoskeletal Disorders: Yes Hx Back Pain: Yes Hx Falls: No - GASTROINTESTINAL Hx Gastrointestinal Disorders: No - GENITOURINARY/GYNECOLOGICAL Hx Genitourinary Disorders: No - PSYCHIATRIC Hx Substance Use: No - SURGICAL HISTORY Hx Surgeries: Yes Hx Section: Yes - ANESTHESIA Hx Anesthesia: No Hx Anesthesia Reactions: No Hx Malignant Hyperthermia: No Meds Home Medications: Home Medication List Medication Instructions Recorded Confirmed Type RX: Clindamycin [Cleocin] 300 mg PO Q6H #28 cap 06/29/18 Rx Allergies/Adverse Reactions: Allergies Allergy/AdvReac Type Severity Reaction Status Date / Time famotidine [From Pepcid] Allergy Verified 06/29/18 11:49 Physical Exam - Constitutional Appears: Well, Non-toxic, No Acute Distress, Unkempt - Head Exam Head Exam: ATRAUMATIC, NORMOCEPHALIC - Eye Exam Eye Exam: Normal appearance. absent: Conjunctival injection, Scleral icterus - ENT Exam ENT Exam: Mucous Membranes Moist, Normal Oropharynx - Respiratory Exam Respiratory Exam: NORMAL BREATHING PATTERN. absent: Accessory Muscle Use, Respiratory Distress - Cardiovascular Exam Cardiovascular Exam: RRR - GI/Abdominal Exam GI & Abdominal Exam: Soft. absent: Distended, Tenderness - Extremities Exam Extremities exam: Positive for: pedal pulses present. Negative for: calf tenderness, pedal edema - Neurological Exam Neurological exam: Alert, Oriented x3 - Psychiatric Exam Psychiatric exam: Normal Affect, Normal Mood - Skin Skin Exam: Dry, Normal Color, Warm Additional comments: except as described below - Expanded Skin Exam Expanded Type of lesion: Abscess (lower lateral quadrant of the right breast, 4cm wide x2cm vertical, black eschar of necrotic skin, fluctuance, surrounding erythema approximately 8cm in diameter, severely tender to touch. No other lesions of masses of either breast, no axillary lymphadenopathy palpable.) Results - Vital Signs Recent Vital Signs: Last Vital Signs Temp 98.3 F 06/29/18 11:45 Pulse 93 H 06/29/18 14:16 Resp 18 06/29/18 14:16 BP 146/83 06/29/18 14:16 Pulse Ox 92 L 06/29/18 16:08 - Labs Result Diagrams: 06/29/18 14:13 06/29/18 14:13 Labs: Laboratory Results - last 24 hr 06/29/18 06/29/18 06/29/18 14:13 14:13 14:13 WBC 7.6 RBC 5.09 Hgb 14.6 D Hct 44.0 MCV 86.4 D MCH 28.7 MCHC 33.2 RDW 17.0 H Plt Count 234 D MPV 9.2 Neut % (Auto) 68.6 Lymph % (Auto) 23.6 Nicholas % (Auto) 6.6 Eos % (Auto) 0.8 Baso % (Auto) 0.4 Neut # (Auto) 5.2 Lymph # (Auto) 1.8 Nicholas # (Auto) 0.5 Eos # (Auto) 0.1 Baso # (Auto) 0.0 PT 20.8 H INR 1.9 APTT 36 H Sodium 141 Potassium 3.8 Chloride 103 Carbon Dioxide 28 Anion Gap 15 BUN 9 Creatinine 0.5 L Est GFR ( Amer) > 60 Est GFR (Non-Af Amer) > 60 Random Glucose 258 H Calcium 9.1 Total Bilirubin 0.4 AST 25 ALT 30 Alkaline Phosphatase 101 Total Protein 7.4 Albumin 4.1 Globulin 3.3 Albumin/Globulin Ratio 1.2 Assessment & Plan - Assessment and Plan (Free Text) Assessment: 43F with DM and hypothyroidism with abscess of the right breast Plan: Incision and drainage performed at bedside with large amount of purulent drainage output F/U cultures Pt may be D/C'd from a surgical standpoint with PO antibiotics and follow up with Dr. Patel with in her office on Saturday Dressing instructions given to patient Patient may take home pain medications PRN for pain Patient should return to the ER or call Dr. Patel's office for fever >100.4 refractory to tylenol, worsened pain and swelling, severe bleeding, or any other concerns Discussed with Dr. Jorge Mascorro, PGY2 Incision and Drainage - Time Time Performed: 15:00 - Time Out Time Out: Side verified, Site verified, Patient ID confirmed, Sterile procedures obs. - Consent obtained Consent obtained: Written - Performed by Performed by: Mid-level Provider - Indications Indications: Cutaneous abscess - Contraindications Contraindications: Coagulopathy - Location Location: Right (breast), Lateral, Inferior, Skin abscess - Dimensions Dimensions Length cm: 2 Dimensions width cm: 4 - Anesthetic Technique Anesthetic Technique: Local - Anesthetic Anesthetic: Lidocaine 2% - Procedure Procedure: Usual prep and drape, cm incision (3cm linear incision and 1cm diameter necrotic tissue debrided), Overlying area fluctuance, # scalpel used (11), Explored for loculations, Irrigated, Packed with sterile gauze - Drained Drained: ml pus (5) - Post-procedure Post procedure: Neurovascular status norm - Complications Complications: None - Patient tolerated procedure Patient tolerated procedure: Well
[2018-06-29] MEDS ORDERED: Tdap Vaccine 0.5 ml Vial (10-64 yrs) IM ONE ×2 (16:58→17:09)
== END 2018-06-29 18:20 | disposition home or self-care (01) ==
LOC: C.ER 11:37
DX: N61.1 Abscess of the breast and nipple (principal)